=== PATIENT | male | born 1930 | race Caucasian/White ===

== ENCOUNTER 2018-02-08 20:40 | Inpatient (IN) | payer MEDICARE, OTHER ==
[2018-02-08] MEDS ORDERED: ALBUTEROL NEBULIZED 2.5 MG/3 ML INHALATION STA (21:21)
[2018-02-08] MEDS ORDERED: AZITHROMYCIN 500 MG in SODIUM CHLORIDE 0.9% 250 ML IVPB STA (21:21)
[2018-02-08] MEDS ORDERED: IPRATROPIUM 0.5 MG/2.5 ML NEBU INHALATION STA (21:21)
[2018-02-08] MEDS ORDERED: methylPREDNISolone SOD SUCCI 125 MG/2 ML VIAL IV STA (21:21)
[2018-02-08 21:57] LABS: INR 2.3 (<1.2); Partial Thromboplastin Time 30.8 sec (22.0-30.0); Prothrombin Time 22.4 sec (9.0-12.0)
[2018-02-08 21:59] LABS: Albumin 4.1 g/dL (3.5-5.0); Calcium 9.4 mg/dL (8.4-10.2); Potassium 5.3 mmol/L (3.5-5.1); Total Bilirubin 1.5 mg/dL (0.2-1.3); Total Protein 7.5 g/dL (6.3-8.2)
[2018-02-08 22:06] LABS: Basophils % (A) 0 %; Eosinophils % (A) 0 %; HCT 42.9 % (39.0-53.0); HGB 13.5 gm/dL (13.0-17.5); Lymphocytes # (A) 0.9 k/uL (1.0-4.8); Lymphocytes % (A) 6 %; MCH 28.4 pg (25.0-35.0); MCHC 31.6 g/dL (31.0-37.0); Mean Platelet Volume 7.8; Monocytes # (A) 0.8 k/uL (0-1.0); Monocytes % (A) 5 %; Neutrophils # (A) 13.2 k/uL (1.3-7.7); Neutrophils % (A) 87 %; Platelet Count 179 k/uL (150-450); RBC 4.77 m/uL (4.30-5.90); WBC 15.1 k/uL (3.8-10.6)
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
[2018-02-08 22:10] LABS: Creatine Kinase MB 5.5 ng/mL (0.0-2.4)
[2018-02-08 22:15] LABS: Troponin I 0.041 ng/mL (0.000-0.034)
--- NOTE | 2018-02-08 22:27 | XR ---
EXAMINATION TYPE: XR chest 2V DATE OF EXAM: 02/08/2018 COMPARISON: 06/09/2015 HISTORY: Hypertension and esophageal cancer TECHNIQUE: Frontal and lateral views of the chest are obtained. FINDINGS: There is linear density at the right lung base. There is elevated right diaphragm. There i s no heart failure. There are sternal wires. There are chest leads. I see no definite pleural effusio n. IMPRESSION: There is some right basilar atelectasis the same or slightly increased compared to last exam. No heart failure.
[2018-02-08] MEDS ORDERED: IPRATROPIUM-ALBUTEROL 3 ML NEB INHALATION PRN (22:44)
[2018-02-09] MEDS: methylPREDNISolone SOD SUCCI 125 MG/2 ML VIAL IV SCH ×5 (00:10→23:56)
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
[2018-02-09] MEDS ORDERED: BENZONATATE 100 MG CAP PO PRN (01:27)
[2018-02-09] MEDS ORDERED: NALOXONE 0.4 MG/ML 1 ML VIAL IV PRN (04:00)
[2018-02-09] MEDS ORDERED: DOCUSATE 100 MG CAP PO PRN (06:00)
[2018-02-09] MEDS: LEVOTHYROXINE 88 MCG TAB PO SCH (06:55)
[2018-02-09] MEDS: IPRATROPIUM-ALBUTEROL 3 ML NEB INHALATION SCH ×4 (07:45→20:18)
--- NOTE | 2018-02-09 08:53 | XR ---
EXAMINATION TYPE: XR chest 2V DATE OF EXAM: 02/09/2018 COMPARISON: Prior chest x-ray 02/08/2018 HISTORY: Sepsis and cough TECHNIQUE: Frontal and lateral views of the chest are obtained. FINDINGS: Patient is post median sternotomy. Heart size is stable, enlarged. Elevation of right sriram diaphragm persists. There is no evident pneumothorax. Right shoulder somewhat high riding, correlate for possible rotator cuff tear. There are overlying cardiac leads. Bandlike areas of increased attenu ation present in the right lower lung. IMPRESSION: Probable basilar atelectasis, correlate to exclude pneumonia. Persistent cardiomegaly. A dditional findings above.
[2018-02-09] MEDS ORDERED: LOSARTAN 50 MG TAB PO SCH (09:00)
[2018-02-09] MEDS ORDERED: ASPIRIN 81 MG PO SCH (09:00)
[2018-02-09] MEDS ORDERED: FUROSEMIDE 20 MG TAB PO SCH (09:00)
[2018-02-09] MEDS: METOPROLOL TARTRATE 12.5 MG TAB PO SCH ×2 (09:24→09:29)
[2018-02-09] MEDS: INSULIN ASPART 100 UNIT/ML 1 ML 10 ML VIAL SQ SCH ×4 (09:27→20:18)
[2018-02-09] MEDS: ISOSORBIDE MONONITRATE ER 30 MG TAB.ER.24H PO SCH (09:28)
[2018-02-09] MEDS: PANTOPRAZOLE 40 MG TABLET PO SCH (09:30)
[2018-02-09] MEDS: AZITHROMYCIN 500 MG TAB PO SCH (09:30)
[2018-02-09] MEDS: TAMSULOSIN 0.4 MG CAP.ER.24H PO SCH (09:30)
[2018-02-09] MEDS ORDERED: SODIUM CHLORIDE 0.9% 1,000 ML IV ONE (09:33)
--- NOTE | 2018-02-09 09:49 | P.PN ---
Subjective Progress Note Date: 02/09/18 Patient seen and examined at bedside, has not been ambulatory much since being in the ER on hold. Reports his breathing is slightly improved, complaining of bouts of coughing, denies any chest pain. Shortness of breath ongoing. No acute events overnight. Patient denies any history of asthma or COPD Objective - Vital Signs Vital signs: Vital Signs Temp 98.0 F 02/09/18 06:46 Pulse 53 L 02/09/18 07:53 Resp 18 02/09/18 06:46 BP 102/55 02/09/18 06:46 Pulse Ox 100 02/09/18 06:46 Intake & Output 02/08/18 02/09/18 02/09/18 18:59 06:59 18:59 Output Total 200 Balance -200 Weight 90.265 kg Output: Urine 200 - Exam Constitutional: No acute distress, conversant, pleasant Eyes: Anicteric sclerae, moist conjunctiva, no lid-lag, PERRLA ENMT: NC/AT,Oropharynx clear, no erythema, exudates Neck:Supple, FROM, no masses, or JVD, No carotid bruits; No thyromegaly Lungs: Diminished in the bases, diffuse rhonchi with some wheezes, Normal respiratory effort, no accessory muscle use 2 L nasal cannula Cardiovascular: Heart regular in rate and rhythm, No murmurs, gallops, or rubs no peripheral edema Abdominal: Soft Nontender, nom distended, no guarding, no rebound or rigidity, Normoactive bowel sounds No hepatomegaly, No splenomegaly, No palpable mass No abdominal wall hernia noted Skin: Normal temperature, tone, texture, turgor, No induration No subcutaneous nodules, No rash, lesions, No ulcers Extremities:No digital cyanosis No clubbing, Pedal pulses intact and symmetrical Radial pulses intact and symmetrical Normal gait and station, No calf tenderness Psychiatric: Alert and oriented to person, place and time, Appropriate affect Intact judgement Neuro: Muscles Strength 5/5 in all 4 extremities, Sensation to light touch grossly present throughout, Cranial nerves II-XII grossly intact. No focal sensory deficits - Labs CBC & Chem 7: 02/08/18 21:16 02/08/18 21:16 Labs: Abnormal Lab Results - Last 24 Hours (Table) 02/08/18 02/08/18 02/08/18 Range/Units 21:16 21:16 21:16 WBC 15.1 H (3.8-10.6) k/uL Neutrophils # 13.2 H (1.3-7.7) k/uL Lymphocytes # 0.9 L (1.0-4.8) k/uL PT (9.0-12.0) sec INR (<1.2) APTT (22.0-30.0) sec Sodium 135 L (137-145) mmol/L Potassium 5.3 H (3.5-5.1) mmol/L BUN 54 H (9-20) mg/dL Glucose 275 H (74-99) mg/dL Total Bilirubin 1.5 H (0.2-1.3) mg/dL Total Creatine Kinase 508 H (55-170) U/L CK-MB (CK-2) 5.5 H (0.0-2.4) ng/mL Troponin I 0.041 H* (0.000-0.034) ng/mL 02/08/18 02/09/18 Range/Units 21:16 02:33 WBC (3.8-10.6) k/uL Neutrophils # (1.3-7.7) k/uL Lymphocytes # (1.0-4.8) k/uL PT 22.4 H (9.0-12.0) sec INR 2.3 H (<1.2) APTT 30.8 H (22.0-30.0) sec Sodium (137-145) mmol/L Potassium (3.5-5.1) mmol/L BUN (9-20) mg/dL Glucose (74-99) mg/dL Total Bilirubin (0.2-1.3) mg/dL Total Creatine Kinase (55-170) U/L CK-MB (CK-2) (0.0-2.4) ng/mL Troponin I 0.041 H* (0.000-0.034) ng/mL Assessment and Plan Assessment: Chronic medical issues Hypothyroidism GERD History of CAD status post stents History of aortic valve replacement patient reports thick valve however he is on Coumadin Surrogate decision-maker: Patient daughter CODE STATUS: Full code (1) Sepsis Narrative/Plan: * Secondary to community-acquired pneumonia * Patient afebrile, previous leukocytosis 15 a.m. labs today pending * Continue empiric antibiotic regimen with Rocephin and azithromycin, blood cultures pending, will order urinalysis * Patient with borderline hypotension, we'll hold his hypertensive regimen and give him a bolus of 1 L of normal saline and continue maintenance fluids NS at 75 cc/hr Current Visit: Yes Status: Acute Code(s): A41.9 - SEPSIS, UNSPECIFIED ORGANISM SNOMED Code(s): 08788411 (2) Community acquired pneumonia Narrative/Plan: * Treatment as above with Rocephin and azithromycin * , repeat chest x-ray this a.m. showing probable basilar atelectasis correlate to exclude pneumonia * Continue scheduled and when necessary bronchodilator DuoNeb breathing treatments, continue steroids * Plantar consult pulmonology for further recommendations Current Visit: Yes Status: Acute Code(s): J18.9 - PNEUMONIA, UNSPECIFIED ORGANISM SNOMED Code(s): 647338709 (3) Type 2 diabetes mellitus with hyperglycemia Narrative/Plan: * A1c pending, hyperglycemia Precipitated by infection and ongoing steroid use * Continue home insulin regimen with Levemir 25 units daily at bedtime * Continue with correctional scale insulin coverage Current Visit: Yes Status: Acute Code(s): E11.65 - TYPE 2 DIABETES MELLITUS WITH HYPERGLYCEMIA SNOMED Code(s): 746727726065416 (4) Elevated troponin Narrative/Plan: * Likely non-STEMI type II event due to demand ischemia * h/o CAD continue ASA and statin therapy * Cardiology consult pending, will order 2-D echocardiogram * Patient already anticoagulated and is on warfarin Current Visit: Yes Status: Acute Code(s): R79.89 - OTHER SPECIFIED ABNORMAL FINDINGS OF BLOOD CHEMISTRY SNOMED Code(s): 941170473 (5) Third degree heart block Narrative/Plan: * Third-degree AV block with junctional rhythm, not new as seen on previous EKGs * Cardiology consult * tankerman Current Visit: Yes Status: Acute Code(s): I44.2 - ATRIOVENTRICULAR BLOCK, COMPLETE SNOMED Code(s): 41866567 Plan: Anticipated discharge : 1-2 days
[2018-02-09 12:24] LABS: Glucose,Whole Blood 464 mg/dL (75-99)
[2018-02-09 12:24] LABS: Glucose,Whole Blood 464 mg/dL (75-99)
[2018-02-09] MEDS ORDERED: INSULIN ASPART 100 UNIT/ML 1 ML 10 ML VIAL SQ ONE ×2 (12:24→16:45)
[2018-02-09] MEDS: SODIUM CHLORIDE 0.9% 1,000 ML IV SCH ×2 (12:44→23:26)
--- NOTE | 2018-02-09 13:43 | ECHOF ---
Referral Reason:Elevated troponins MEASUREMENTS -------- HEIGHT: 170.2 cm WEIGHT: 90.3 kg BP: 102/55 RVIDd: 3.5 cm (< 3.3) IVSd: 1.4 cm (0.6 - 1.1) LVIDd: 3.5 cm (3.9 - 5.3) LVPWd: 1.4 cm (0.6 - 1.1) IVSs: 1.9 cm LVIDs: 2.5 cm LVPWs: 1.8 cm LA Diam: 5.0 cm (2.7 - 3.8) LAESV Index (A-L): 37.08 ml/m Ao Diam: 2.6 cm (2.0 - 3.7) AV Cusp: 2.0 cm (1.5 - 2.6) EPSS: 1.0 cm AV maxP.03 mmHg AV meanP.32 mmHg RAP: 5.00 mmHg RVSP: 41.35 mmHg MV EF SLOPE: 54.58 mm/s (70 - 150) MV EXCURSION: 1.12 cm (> 18.000) FINDINGS -------- Atrial fibrillation. This was a technically good study. The left ventricular size is normal. There is moderate concentric left ventricular hypertrophy. O verall left ventricular systolic function is normal with, an EF between 55 - 60 %. The right ventricle is mildly enlarged. LA is moderately dilated 34-39 ml/m2 The right atrial size is normal. Peak/mean gradient across the Aortic Valve is 42.03mmHg / 22.32mmHg. 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 Moderate mitral annular calcification present. Wbqo-nc-bhvozili mitral regurgitation is present. The peak and mean MV gradients are 18.82mmHg 5.28mmHg as measured by doppler. Mild tricuspid regurgitation present. There is mild pulmonary hypertension. The right ventricular systolic pressure, as measured by Doppler, is 41.35mmHg. Moderate pulmonic regurgitation. The aortic root size is normal. IVC Not well visulized. There is a trivial pericardial effusion present. CONCLUSIONS -------- 1. Atrial fibrillation. 2. This was a technically good study. 3. The left ventricular size is normal. 4. There is moderate concentric left ventricular hypertrophy. 5. Overall left ventricular systolic function is normal with, an EF between 55 - 60 %. 6. The right ventricle is mildly enlarged. 7. LA is moderately dilated 34-39 ml/m2 8. Peak/mean gradient across the Aortic Valve is 42.03mmHg / 22.32mmHg. 9. 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 10. Moderate mitral annular calcification present. 11. Gqni-eo-otbpgafp mitral regurgitation is present. 12. The peak and mean MV gradients are 18.82mmHg 5.28mmHg as measured by doppler. 13. Mild tricuspid regurgitation present. 14. There is mild pulmonary hypertension. 15. Moderate pulmonic regurgitation. 16. The aortic root size is normal. 17. IVC Not well visulized. 18. There is a trivial pericardial effusion present. ROLL SHEETING CUTTER: SIMONA Marie
[2018-02-09 14:42] LABS: Hemoglobin A1C 9.1 % (4.0-6.0)
[2018-02-09 15:05] LABS: Appearance,Urine Clear (Clear); Bacteria,Urine Rare /hpf; Bilirubin,Urine Negative (Negative); Blood,Urine Negative (Negative); Color,Urine Yellow; Glucose,Urine (UA) 4+ (Negative); Ketones,Urine Negative (Negative); Leukocyte Esterase,Urine Moderate (Negative); Nitrite,Urine Negative (Negative); Protein,Urine Negative (Negative); Specific Gravity,Urine 1.021 (1.001-1.035); Urobilinogen,Urine <2.0 mg/dL (<2.0)
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
[2018-02-09 16:00] LABS: Basophils % (A) 0 %; Eosinophils # (A) 0.1 k/uL (0-0.7); Eosinophils % (A) 1 %; HGB 12.4 gm/dL (13.0-17.5); Hypochromasia Moderate; Lymphocytes # (A) 0.4 k/uL (1.0-4.8); Lymphocytes % (A) 3 %; MCH 28.4 pg (25.0-35.0); MCHC 30.2 g/dL (31.0-37.0); MCV 94.1 fL (80.0-100.0); Mean Platelet Volume 8.4; Monocytes # (A) 0.4 k/uL (0-1.0); Monocytes % (A) 4 %; Neutrophils # (A) 10.1 k/uL (1.3-7.7); Neutrophils % (A) 92 %; Platelet Count 148 k/uL (150-450); RBC 4.36 m/uL (4.30-5.90); WBC 10.9 k/uL (3.8-10.6)
[2018-02-09 17:12] LABS: Glucose,Whole Blood 457 mg/dL (75-99)
[2018-02-09] MEDS ORDERED: WARFARIN 2.5 MG TAB PO SCH (18:00)
[2018-02-09] MEDS: ATORVASTATIN 20 MG TAB PO SCH (19:59)
[2018-02-09] MEDS: FINASTERIDE 5 MG TAB PO SCH (19:59)
[2018-02-09] MEDS: LINAGLIPTIN 5 MG TABLET PO SCH (19:59)
[2018-02-09 20:17] LABS: Glucose,Whole Blood 422 mg/dL (75-99)
[2018-02-09] MEDS: INSULIN DETEMIR 100 UNIT/ML 10 ML VIAL SQ SCH (20:18)
[2018-02-09 20:46] LABS: Glucose,Whole Blood 396 mg/dL (75-99)
--- NOTE | 2018-02-09 21:05 | CONS ---
CONSULTATION Mr. Groves is an 88 year old gentleman with a known history of CAD, aortic valve replacement with a tissue valve, paroxysmal atrial fibrillation. He has history of type 2 diabetes mellitus, hypertension and hyperlipidemia as well. He came into the hospital with complaints of cough and dyspnea and it was a nonproductive cough. He also felt somewhat feverish. He also has nondescript chest discomfort that lasted less than a minute, sharp in nature, very atypical in quality. He has history of aortic valve bioprosthesis. With these symptoms, he came into the hospital and had a chest x- ray performed which suggested pneumonia. He has been hospitalized but troponin levels have shown some increase and therefore I was asked to see the patient. He denies any chest discomfort at the time of my evaluation, is resting comfortably, has no chest pain, shortness of breath or palpitation. He actually tells me that he feels better. He has multiple comorbid conditions. He does have pneumonia and this is being addressed with antibiotics. PAST MEDICAL HISTORY: This is remarkable for: 1. Type 2 diabetes. 2. Hypertension. 3. Hyperlipidemia. 4. History of aortic valve bioprosthesis as well as a bypass surgery, details unclear. He also has a PCI performed in 2003. Again, details are unavailable. He has his cardiac care in the [place] area. MEDICATIONS: At home include aspirin 81 mg daily, Avodart, insulin, Lantus, Imdur 30 mg daily, Synthroid 88 mcg daily, losartan 100 mg daily, rosuvastatin 10 mg daily, omeprazole, Lasix 20 mg b.i.d., potassium 10 mEq daily, Flomax, Coumadin 2.5 mg daily and also takes Humalog with each meal. ALLERGIES: No known drug allergies. LABORATORY DATA: Suggested two troponin levels and both of these were 0.041 and they do not suggest any myocardial injury. He is resting comfortably at the time of my evaluation. The proBNP was also within normal limits. Chest x-ray, however, initially indicated evidence of what seems to be a right basilar atelectasis and possibility of pneumonia is being entertained. I reviewed the chest x-ray and it appears that he does have right lower lobe pneumonia and patient is already on some antibiotics. On reviewing the chart and talking to the patient, it is unclear whether he has a documented atrial fibrillation or not, but he is at this time in what seems to be a sinus rhythm with a second-degree AV block with prolongation of IA interval and a QRS that is not particularly enlarged. This is a Wenckebach type phenomenon noted with a prolongation of IA interval from beat to beat. I also reviewed previous EKGs and noted that he had a first-degree AV block as well. On the rhythm strips, there are some intermittent second-degree AV block noted. At the time of my evaluation, he is asymptomatic. Heart rate is in the 50s. MEDICATIONS: His home medications include: Metoprolol tartrate 12.5 mg b.i.d. PHYSICAL EXAMINATION: Blood pressure is 140/70, pulse rate is about 60 per minute. HEENT: Unremarkable. Fundus was not examined by me. NECK: Supple. There is JVD of 1 cm. No carotid bruit. Heart exam reveals S1, S2 with a short systolic murmur at the base. Second heart sound is preserved. Lungs reveal diminished air entry with rales over the right base. Abdomen is soft, nontender. Lower extremities reveal diminished pulses. Central nervous system is grossly within normal limits. EKG revealed sinus mechanism with some Wenckebach phenomenon. No acute changes. Nonspecific ST-T changes are noted. Troponin profile does not suggest myocardial injury. IMPRESSION: 1. Right lower lobe pneumonia. 2. 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 3. History of aortic valve replacement and bypass surgery, details unclear. No overt angina. Troponin profile does not suggest myocardial injury. 4. History of type 2 diabetes mellitus. 5. Hyperlipidemia. RECOMMENDATIONS: I would recommend that we defer any beta blockers and particularly I will stop the Lopressor that he was taking at home. I will discontinue the aspirin and leave him on Coumadin. His echocardiogram does not reveal any significant new concerns. Aortic valve bioprosthesis is stable with mild stenosis. Ejection fraction is fairly well preserved. There is mild to moderate mitral regurgitation and mildly elevated PA pressures. I will recommend that we continue telemetry to see if he has any worsening of his conduction system disease, but so far no intervention is necessary. I will check thyroid function tests. I discussed my thoughts in detail with the patient. Thank you very much for the consult. MMODL / IJN: [id number] /
[2018-02-10] MEDS: methylPREDNISolone SOD SUCCI 125 MG/2 ML VIAL IV SCH ×2 (05:19→12:05)
[2018-02-10] MEDS: LEVOTHYROXINE 88 MCG TAB PO SCH (05:26)
[2018-02-10 06:07] LABS: Glucose,Whole Blood 180 mg/dL (75-99)
[2018-02-10] MEDS: INSULIN ASPART 100 UNIT/ML 1 ML 10 ML VIAL SQ SCH ×4 (06:51→20:43)
[2018-02-10 06:54] LABS: Basophils % (A) 0 %; Eosinophils % (A) 0 %; HCT 39.2 % (39.0-53.0); HGB 12.1 gm/dL (13.0-17.5); Lymphocytes # (A) 0.4 k/uL (1.0-4.8); Lymphocytes % (A) 3 %; MCH 27.9 pg (25.0-35.0); MCHC 30.8 g/dL (31.0-37.0); MCV 90.7 fL (80.0-100.0); Mean Platelet Volume 7.8; Monocytes # (A) 0.5 k/uL (0-1.0); Monocytes % (A) 4 %; Neutrophils # (A) 12.6 k/uL (1.3-7.7); Neutrophils % (A) 92 %; Platelet Count 174 k/uL (150-450); RBC 4.32 m/uL (4.30-5.90); WBC 13.7 k/uL (3.8-10.6)
[2018-02-10 07:10] LABS: Albumin 3.2 g/dL (3.5-5.0); Calcium 8.7 mg/dL (8.4-10.2); Magnesium 2.2 mg/dL (1.6-2.3); Potassium 4.8 mmol/L (3.5-5.1); Total Bilirubin 0.4 mg/dL (0.2-1.3); Total Protein 6.3 g/dL (6.3-8.2)
[2018-02-10] MEDS: IPRATROPIUM-ALBUTEROL 3 ML NEB INHALATION SCH ×4 (08:10→20:17)
[2018-02-10] MEDS: PANTOPRAZOLE 40 MG TABLET PO SCH (09:29)
[2018-02-10] MEDS: ISOSORBIDE MONONITRATE ER 30 MG TAB.ER.24H PO SCH (09:29)
[2018-02-10] MEDS: AZITHROMYCIN 500 MG TAB PO SCH (09:29)
[2018-02-10] MEDS: TAMSULOSIN 0.4 MG CAP.ER.24H PO SCH (09:29)
--- NOTE | 2018-02-10 10:56 | P.PN ---
Subjective Progress Note Date: 02/10/18 Patient has been up and ambulatory walking the halls, currently on 3 L nasal cannula we'll plan to wean his oxygen. He followed by cardiology and pulmonary. No acute events overnight. Patient afebrile Objective - Vital Signs Vital signs: Vital Signs Temp 97.7 F 02/10/18 08:00 Pulse 64 02/10/18 08:20 Resp 17 02/10/18 08:00 BP 115/70 02/10/18 08:00 Pulse Ox 95 02/10/18 08:00 Intake & Output 02/09/18 02/10/18 02/10/18 18:59 06:59 18:59 Intake Total 480 600 720 Output Total 200 600 Balance 280 600 120 Weight 90.2 kg Intake: Intake, IV Titration 600 Amount Sodium Chloride 0.9% 1, 600 000 ml @ 75 mls/hr IV . [id number] [facility] Rx#:[id number] Oral 480 720 Output: Urine 200 600 Other: # Voids 2 - Exam Constitutional: No acute distress, conversant, pleasant Eyes: Anicteric sclerae, moist conjunctiva, no lid-lag, PERRLA ENMT: NC/AT,Oropharynx clear, no erythema, exudates Neck:Supple, FROM, no masses, or JVD, No carotid bruits; No thyromegaly Lungs: Diminished in the bases, improved aeration, Normal respiratory effort, no accessory muscle use 2 L nasal cannula Cardiovascular: Heart regular in rate and rhythm, No murmurs, gallops, or rubs no peripheral edema Abdominal: Soft Nontender, nom distended, no guarding, no rebound or rigidity, Normoactive bowel sounds No hepatomegaly, No splenomegaly, No palpable mass No abdominal wall hernia noted Skin: Normal temperature, tone, texture, turgor, No induration No subcutaneous nodules, No rash, lesions, No ulcers Extremities:No digital cyanosis No clubbing, Pedal pulses intact and symmetrical Radial pulses intact and symmetrical Normal gait and station, No calf tenderness Psychiatric: Alert and oriented to person, place and time, Appropriate affect Intact judgement Neuro: Muscles Strength 5/5 in all 4 extremities, Sensation to light touch grossly present throughout, Cranial nerves II-XII grossly intact. No focal sensory deficits - Labs CBC & Chem 7: 02/10/18 06:11 02/10/18 06:11 Labs: Abnormal Lab Results - Last 24 Hours (Table) 02/08/18 02/09/18 02/09/18 Range/Units 21:16 12:19 12:21 WBC (3.8-10.6) k/uL Hgb (13.0-17.5) gm/dL MCHC (31.0-37.0) g/dL Plt Count (150-450) k/uL Neutrophils # (1.3-7.7) k/uL Lymphocytes # (1.0-4.8) k/uL BUN (9-20) mg/dL Glucose (74-99) mg/dL POC Glucose (mg/dL) 464 H 464 H (75-99) mg/dL Hemoglobin A1c 9.1 H (4.0-6.0) % Albumin (3.5-5.0) g/dL Urine Glucose (UA) (Negative) Ur Leukocyte Esterase (Negative) Urine WBC (0-5) /hpf Urine Bacteria (None) /hpf 02/09/18 02/09/18 02/09/18 Range/Units 14:24 15:20 16:41 WBC 10.9 H (3.8-10.6) k/uL Hgb 12.4 L (13.0-17.5) gm/dL MCHC 30.2 L (31.0-37.0) g/dL Plt Count 148 L (150-450) k/uL Neutrophils # 10.1 H (1.3-7.7) k/uL Lymphocytes # 0.4 L (1.0-4.8) k/uL BUN (9-20) mg/dL Glucose (74-99) mg/dL POC Glucose (mg/dL) 457 H (75-99) mg/dL Hemoglobin A1c (4.0-6.0) % Albumin (3.5-5.0) g/dL Urine Glucose (UA) 4+ H (Negative) Ur Leukocyte Esterase Moderate H (Negative) Urine WBC 16 H (0-5) /hpf Urine Bacteria Rare H (None) /hpf 02/09/18 02/09/18 02/10/18 Range/Units 20:15 20:44 06:06 WBC (3.8-10.6) k/uL Hgb (13.0-17.5) gm/dL MCHC (31.0-37.0) g/dL Plt Count (150-450) k/uL Neutrophils # (1.3-7.7) k/uL Lymphocytes # (1.0-4.8) k/uL BUN (9-20) mg/dL Glucose (74-99) mg/dL POC Glucose (mg/dL) 422 H 396 H 180 H (75-99) mg/dL Hemoglobin A1c (4.0-6.0) % Albumin (3.5-5.0) g/dL Urine Glucose (UA) (Negative) Ur Leukocyte Esterase (Negative) Urine WBC (0-5) /hpf Urine Bacteria (None) /hpf 02/10/18 02/10/18 Range/Units 06:11 06:11 WBC 13.7 H (3.8-10.6) k/uL Hgb 12.1 L (13.0-17.5) gm/dL MCHC 30.8 L (31.0-37.0) g/dL Plt Count (150-450) k/uL Neutrophils # 12.6 H (1.3-7.7) k/uL Lymphocytes # 0.4 L (1.0-4.8) k/uL BUN 57 H (9-20) mg/dL Glucose 175 H (74-99) mg/dL POC Glucose (mg/dL) (75-99) mg/dL Hemoglobin A1c (4.0-6.0) % Albumin 3.2 L (3.5-5.0) g/dL Urine Glucose (UA) (Negative) Ur Leukocyte Esterase (Negative) Urine WBC (0-5) /hpf Urine Bacteria (None) /hpf Microbiology - Last 24 Hours (Table) 02/09/18 14:24 Urine Culture - Preliminary Urine,Voided 02/08/18 21:16 Blood Culture - Preliminary Blood No Growth after 24 hours Assessment and Plan (1) Sepsis Narrative/Plan: * Secondary to community-acquired pneumonia * Patient afebrile, previous leukocytosis 15 a.m. labs today pending * Continue empiric antibiotic regimen with Rocephin and azithromycin, blood cultures pending, will order urinalysis * Patient with borderline hypotension, we'll hold his hypertensive regimen and give him a bolus of 1 L of normal saline and continue maintenance fluids NS at 75 cc/hr Current Visit: Yes Status: Acute Code(s): A41.9 - SEPSIS, UNSPECIFIED ORGANISM SNOMED Code(s): 29922148 (2) Community acquired pneumonia Narrative/Plan: * Treatment as above with Rocephin and azithromycin * , repeat chest x-ray this a.m. showing probable basilar atelectasis correlate to exclude pneumonia * Continue scheduled and when necessary bronchodilator DuoNeb breathing treatments, continue steroids * Appreciate cardiology recommendations Current Visit: Yes Status: Acute Code(s): J18.9 - PNEUMONIA, UNSPECIFIED ORGANISM SNOMED Code(s): 320386103 (3) Type 2 diabetes mellitus with hyperglycemia Narrative/Plan: * A1c pending, hyperglycemia Precipitated by infection and ongoing steroid use * Continue home insulin regimen with Levemir 25 units daily at bedtime * Continue with correctional scale insulin coverage Current Visit: Yes Status: Acute Code(s): E11.65 - TYPE 2 DIABETES MELLITUS WITH HYPERGLYCEMIA SNOMED Code(s): 389619033059726 (4) Elevated troponin Narrative/Plan: * Likely non-STEMI type II event due to demand ischemia * h/o CAD continue statin therapy * Appreciated cardiology recommendations * Patient already anticoagulated and is on warfarin Current Visit: Yes Status: Acute Code(s): R79.89 - OTHER SPECIFIED ABNORMAL FINDINGS OF BLOOD CHEMISTRY SNOMED Code(s): 041157812 (5) Third degree heart block Narrative/Plan: * Third-degree AV block with junctional rhythm, not new as seen on previous EKGs * Appreciate cardiology recommendations beta blockers discontinued, echocardiogram showing a fairly well preserved EF * continue monitoring telemetry Current Visit: Yes Status: Acute Code(s): I44.2 - ATRIOVENTRICULAR BLOCK, COMPLETE SNOMED Code(s): 90262150
[2018-02-10 11:55] LABS: Glucose,Whole Blood 300 mg/dL (75-99)
[2018-02-10 13:04] VITALS: BMI 31.1
[2018-02-10] MEDS: SODIUM CHLORIDE 0.9% 1,000 ML IV SCH ×2 (14:01→23:35)
--- NOTE | 2018-02-10 15:00 | P.PN ---
Subjective Progress Note Date: 02/10/18 Principal diagnosis: Acute community acquired right lower lobe pneumonia This is an 88-year-old white male with history of multiple medical problems including type 2 diabetes, hypertension, hyperlipidemia, and remote history of esophageal cancer treated only with radiation and chemotherapy. This was about 12 years ago. Patient had a 2-pack-year history of smoking, presented to the ER with 1 week history of cough, mostly dry cough, at times productive with greenish phlegm. Patient was also complaining of some shortness of breath, however his shortness of breath is rather chronic. No known history of COPD, no previous history of pneumonia, patient had a recent full workup by his primary care physician at [facility], and according to his primary care physician all his workup was negative including multiple blood tests. Echocardiogram on admission showed no evidence of LV dysfunction, and no significant valvular heart disease. It did show moderate concentric left ventricular hypertrophy, ejection fraction was 55-60%. Chest x-ray on admission showed right lower lobe infiltrates. CBC showed evidence of leukocytosis with WBC count of 15.1. Troponin was borderline elevated at 0.041 , BNP level was just over 2000. Patient is known to have history of aortic valve replacement, chronically on anticoagulation therapy and his INR on admission was therapeutic. EKG was reviewed on admission, and it is suspicious for a second degree AV block. Cardiology consultation is pending. On 02/10/2018 patient seen in follow-up on selective care unit. In no acute distress, wearing oxygen intermittently right now room air pulse ox is 93%, no fever or chills, vital signs are stable, lung sounds are positive for some coarse rales over right lower lobe. Patient has been ambulating about the room , tolerating activity well, on empiric antibiotics in with Rocephin and Zithromax, is unable to produce a sputum sample for us, blood and urine cultures are pending. Clinically remains stable, improving Objective - Vital Signs Vital signs: Vital Signs Temp 97.7 F 02/10/18 08:00 Pulse 69 02/10/18 12:00 Resp 18 02/10/18 12:00 BP 131/54 02/10/18 12:00 Pulse Ox 93 L 02/10/18 12:00 Intake & Output 02/09/18 02/10/18 02/10/18 18:59 06:59 18:59 Intake Total 480 600 720 Output Total 200 600 Balance 280 600 120 Weight 90.2 kg 90.2 kg Intake: Intake, IV Titration 600 Amount Sodium Chloride 0.9% 1, 600 000 ml @ 75 mls/hr IV . [id number] [facility] Rx#:[id number] Oral 480 720 Output: Urine 200 600 Other: # Voids 2 - Exam Physical Exam: Revealed an 88-year-old white male in no distress. Very pleasant. On 2 L nasal cannula. Head: Atraumatic, normocephalic. HEENT:[Neck is supple.] [No neck masses.] [No thyromegaly.] [No JVD.] PERRLA, EOMI, no icterus. Chest: [Significant crackles and rhonchi noted at the right base, minimal crackles at the left base, symmetrical expansion, no wheezing..] Cardiac Exam: [Normal S1 and S2, no S3 gallop, 2/6 systolic murmur thought the precordium. Abdomen: [Obese, Soft, nontender, no megaly, no rebound, no guarding, normal bowel sounds.] Extremities: [No clubbing, no edema, no cyanosis. Chronic venous stasis changes noted in lower extremities.] Neurological Exam: [No focal neurologic deficit.] Psychiatric: Normal mood, affect and mental status examination. Skin: No rashes. - Labs CBC & Chem 7: 02/10/18 06:11 02/10/18 06:11 Labs: Abnormal Lab Results - Last 24 Hours (Table) 02/09/18 02/09/18 02/09/18 Range/Units 14:24 15:20 16:41 WBC 10.9 H (3.8-10.6) k/uL Hgb 12.4 L (13.0-17.5) gm/dL MCHC 30.2 L (31.0-37.0) g/dL Plt Count 148 L (150-450) k/uL Neutrophils # 10.1 H (1.3-7.7) k/uL Lymphocytes # 0.4 L (1.0-4.8) k/uL BUN (9-20) mg/dL Glucose (74-99) mg/dL POC Glucose (mg/dL) 457 H (75-99) mg/dL Albumin (3.5-5.0) g/dL Urine Glucose (UA) 4+ H (Negative) Ur Leukocyte Esterase Moderate H (Negative) Urine WBC 16 H (0-5) /hpf Urine Bacteria Rare H (None) /hpf 02/09/18 02/09/18 02/10/18 Range/Units 20:15 20:44 06:06 WBC (3.8-10.6) k/uL Hgb (13.0-17.5) gm/dL MCHC (31.0-37.0) g/dL Plt Count (150-450) k/uL Neutrophils # (1.3-7.7) k/uL Lymphocytes # (1.0-4.8) k/uL BUN (9-20) mg/dL Glucose (74-99) mg/dL POC Glucose (mg/dL) 422 H 396 H 180 H (75-99) mg/dL Albumin (3.5-5.0) g/dL Urine Glucose (UA) (Negative) Ur Leukocyte Esterase (Negative) Urine WBC (0-5) /hpf Urine Bacteria (None) /hpf 02/10/18 02/10/18 02/10/18 Range/Units 06:11 06:11 11:53 WBC 13.7 H (3.8-10.6) k/uL Hgb 12.1 L (13.0-17.5) gm/dL MCHC 30.8 L (31.0-37.0) g/dL Plt Count (150-450) k/uL Neutrophils # 12.6 H (1.3-7.7) k/uL Lymphocytes # 0.4 L (1.0-4.8) k/uL BUN 57 H (9-20) mg/dL Glucose 175 H (74-99) mg/dL POC Glucose (mg/dL) 300 H (75-99) mg/dL Albumin 3.2 L (3.5-5.0) g/dL Urine Glucose (UA) (Negative) Ur Leukocyte Esterase (Negative) Urine WBC (0-5) /hpf Urine Bacteria (None) /hpf Microbiology - Last 24 Hours (Table) 02/09/18 14:24 Urine Culture - Preliminary Urine,Voided 02/08/18 21:16 Blood Culture - Preliminary Blood No Growth after 24 hours Assessment and Plan Plan: Assessment: 1 acute community-acquired right lower lobe pneumonia 2 multiple comorbidities including remote history of esophageal cancer, esophageal stricture, valvular heart disease and previous aortic valve replacement, hypothyroidism, type 2 diabetes, hypercholesterolemia, and cardiac arrhythmia. Plan: Continue current medical treatment, will obtain repeat chest x-ray tomorrow, patient continues to improve patient can be considered for discharge home tomorrow. Continue nebulized bronchodilators, we'll transition to oral prednisone tomorrow. I performed a history & physical examination of the patient and discussed their management with my nurse practitioner, Khadijah Cuevas. I reviewed the nurse practitioner's note and agree with the documented findings and plan of care. Lung sounds are positive for right lower lobe crackles. The findings and the impression was discussed with the patient. I attest to the documentation by the nurse practitioner. Time with Patient: Less than 30
[2018-02-10 16:52] LABS: Glucose,Whole Blood 385 mg/dL (75-99)
[2018-02-10] MEDS ORDERED: INSULIN ASPART 100 UNIT/ML 1 ML 10 ML VIAL SQ ONE (17:30)
[2018-02-10] MEDS: methylPREDNISolone SOD SUCCI 40 MG/ML 1 ML VIAL IV SCH ×2 (17:36→23:35)
[2018-02-10] MEDS ORDERED: WARFARIN 2.5 MG TAB PO SCH (18:00)
--- NOTE | 2018-02-10 18:51 | PN ---
PROGRESS NOTE Dada Groves is a patient with some CAD with prior bypass surgery. He came in with pneumonia. He is on antibiotics. I reviewed his rhythm strips. He has sinus mechanism with first-degree heart block. No significant bradycardia. No symptoms. I will obtain EKG today. Vitals are stable. S1-S2 heard normally. Short systolic murmur noted. Lungs are clear. Abdomen and lower exam is unchanged. Plan is to continue current medications. Increase activity and avoid any rate lowering agents. Patient may be discharged whenever it is okay with pulmonology and the admitting physician. MMODL / IJN: [id number] /
[2018-02-10 20:40] LABS: Glucose,Whole Blood 309 mg/dL (75-99)
[2018-02-10] MEDS: LINAGLIPTIN 5 MG TABLET PO SCH (20:43)
[2018-02-10] MEDS: FINASTERIDE 5 MG TAB PO SCH (20:43)
[2018-02-10] MEDS: ATORVASTATIN 20 MG TAB PO SCH (20:43)
[2018-02-10] MEDS: INSULIN DETEMIR 100 UNIT/ML 10 ML VIAL SQ SCH (20:44)
[2018-02-11 05:41] LABS: Glucose,Whole Blood 295 mg/dL (75-99)
[2018-02-11] MEDS: LEVOTHYROXINE 88 MCG TAB PO SCH (05:53)
[2018-02-11] MEDS: INSULIN ASPART 100 UNIT/ML 1 ML 10 ML VIAL SQ SCH ×4 (05:53→20:15)
[2018-02-11 06:40] LABS: INR 4.8 (<1.2); Prothrombin Time 46.6 sec (9.0-12.0)
[2018-02-11] MEDS: TAMSULOSIN 0.4 MG CAP.ER.24H PO SCH (08:30)
[2018-02-11] MEDS: methylPREDNISolone SOD SUCCI 40 MG/ML 1 ML VIAL IV SCH (08:30)
[2018-02-11] MEDS: ISOSORBIDE MONONITRATE ER 30 MG TAB.ER.24H PO SCH (08:30)
[2018-02-11] MEDS: AZITHROMYCIN 500 MG TAB PO SCH (08:30)
[2018-02-11] MEDS: PANTOPRAZOLE 40 MG TABLET PO SCH (08:30)
[2018-02-11] MEDS: IPRATROPIUM-ALBUTEROL 3 ML NEB INHALATION SCH ×4 (08:41→19:13)
--- NOTE | 2018-02-11 08:54 | XR ---
EXAMINATION TYPE: XR chest 2V DATE OF EXAM: 02/11/2018 COMPARISON: 02/09/2018 TECHNIQUE: PA and lateral views submitted. HISTORY: Cough FINDINGS: Patient is post median sternotomy. Heart size is stable, enlarged. Elevation of right hemidiaphragm p ersists. There is no evident pneumothorax. Consolidation and pleural effusion involving the right laila g essentially stable. Underlying interstitial lung disease or COPD suspected. Heart is enlarged. Arth ropathy of the shoulders and degenerative change spine. Surgical clips in the abdomen. IMPRESSION: 1. Correlate for COPD with right basilar consolidation and small effusion. Pneumonia in the different ial diagnosis.
[2018-02-11 11:46] LABS: Glucose,Whole Blood 259 mg/dL (75-99)
--- NOTE | 2018-02-11 14:31 | P.PN ---
Subjective Progress Note Date: 02/11/18 Patient is doing fairly well today. He denies any shortness of breath or wheezing. No acute events reported by nursing staff overnight. Objective - Vital Signs Vital signs: Vital Signs Temp 97.6 F 02/11/18 12:00 Pulse 64 02/11/18 12:32 Resp 19 02/11/18 12:00 BP 165/87 02/11/18 12:00 Pulse Ox 96 02/11/18 12:00 Intake & Output 02/10/18 02/11/18 02/11/18 18:59 06:59 18:59 Intake Total 1000 200 480 Output Total 900 1000 500 Balance 100 -800 -20 Weight 90.2 kg 94 kg Intake: IV 200 Sodium Chloride 0.9% 1, 150 000 ml @ 75 mls/hr IV . [id number] [facility] Rx#:[id number] cefTRIAXone 1,000 mg In 50 Sodium Chloride 0.9% 50 ml @ 100 mls/hr IVPB Q24H [facility] Rx#:[id number] Oral 1000 480 Output: Urine 900 1000 500 Other: # Voids 2 - Exam General: The patient is awake and alert, in no distress Eye: there is normal conjunctiva bilaterally. Cardiovascular: Normal S1-S2, no S3-S4, no murmurs. Respiratory: Lungs clear to auscultation bilaterally Gastrointestinal: Abdomen is soft, nontender Musculoskeletal: There is no pedal edema. Neurological:. Speech is normal. Skin: Skin is warm and dry - Labs CBC & Chem 7: 02/10/18 06:11 02/10/18 06:11 Labs: Abnormal Lab Results - Last 24 Hours (Table) 02/10/18 02/10/18 02/11/18 Range/Units 16:50 20:38 05:39 PT (9.0-12.0) sec INR (<1.2) POC Glucose (mg/dL) 385 H 309 H 295 H (75-99) mg/dL 02/11/18 02/11/18 Range/Units 05:59 11:41 PT 46.6 H (9.0-12.0) sec INR 4.8 H (<1.2) POC Glucose (mg/dL) 259 H (75-99) mg/dL Microbiology - Last 24 Hours (Table) 02/09/18 14:24 Urine Culture - Final Urine,Voided 02/08/18 21:16 Blood Culture - Preliminary Blood No Growth after 48 hours Assessment and Plan Assessment: 1. Community-acquired pneumonia with sepsis on presentation. No septic shock. Improving with antibiotic ceftriaxone/azithromycin. Blood culture negative to date. 2. History of aortic valve replacement on anticoagulation with Coumadin. Also Coumadin today for INR of 4.8. Repeat lab work in the morning 3. Coronary artery disease with prior stent placement, with mild troponin elevation on presentation. Seen and evaluated by cardiology. Continue medical management. 4. First-degree heart block noted on 12-lead EKG: seen by cardiology. No intervention needed at this time. 5. Type 2 diabetes mellitus, not well controlled. A1c 9.1. Continue current regimen. Monitor blood glucose closely 6. Essential hypertension: Blood pressure within acceptable range
--- NOTE | 2018-02-11 15:40 | PN ---
PROGRESS NOTE Mr. Groves is a gentleman with type 2 diabetes, hypertension, hyperlipidemia with a history of aortic valve bioprosthesis and bypass surgery in the past. He was admitted with pneumonia. He is feeling better today. Denies chest pain. Improved functional capacity. His breathing is good. He has no symptoms of chest discomfort or shortness of breath. We will continue his current medications, increase activity, and hopefully he can be discharged whenever it is okay with the slat grader. His vital signs are stable. S1-S2 heard normally. Short systolic murmur is audible. Lungs are clear. Abdomen and lower extremity exam is unchanged. MMODL / IJN: [id number] /
--- NOTE | 2018-02-11 16:14 | P.PN ---
Subjective Progress Note Date: 02/11/18 Principal diagnosis: Acute community acquired right lower lobe pneumonia This is an 88-year-old white male with history of multiple medical problems including type 2 diabetes, hypertension, hyperlipidemia, and remote history of esophageal cancer treated only with radiation and chemotherapy. This was about 12 years ago. Patient had a 2-pack-year history of smoking, presented to the ER with 1 week history of cough, mostly dry cough, at times productive with greenish phlegm. Patient was also complaining of some shortness of breath, however his shortness of breath is rather chronic. No known history of COPD, no previous history of pneumonia, patient had a recent full workup by his primary care physician at [facility], and according to his primary care physician all his workup was negative including multiple blood tests. Echocardiogram on admission showed no evidence of LV dysfunction, and no significant valvular heart disease. It did show moderate concentric left ventricular hypertrophy, ejection fraction was 55-60%. Chest x-ray on admission showed right lower lobe infiltrates. CBC showed evidence of leukocytosis with WBC count of 15.1. Troponin was borderline elevated at 0.041 , BNP level was just over 2000. Patient is known to have history of aortic valve replacement, chronically on anticoagulation therapy and his INR on admission was therapeutic. EKG was reviewed on admission, and it is suspicious for a second degree AV block. Cardiology consultation is pending. On 02/10/2018 patient seen in follow-up on selective care unit. In no acute distress, wearing oxygen intermittently right now room air pulse ox is 93%, no fever or chills, vital signs are stable, lung sounds are positive for some coarse rales over right lower lobe. Patient has been ambulating about the room , tolerating activity well, on empiric antibiotics in with Rocephin and Zithromax, is unable to produce a sputum sample for us, blood and urine cultures are pending. Clinically remains stable, improving On 02/11/2018 patient seen in follow-up. He denies any worsening dyspnea, still has some coughing, without much sputum production. Lung sounds are positive for some coarse rales at the right lower posterior lobe, and a chest x- ray has been reviewed by Dr. Hook, and shows some atelectasis at the right lower lobe, chronically elevated right hemidiaphragm, and better aeration of the left lower lobe. Clinically patient remains stable, no fever or chills, cultures remain negative, today's labs have been reviewed, INR is 4.8, Coumadin will be held tonight, continue with current medical management, patient could be considered for discharge either today or tomorrow. Objective - Vital Signs Vital signs: Vital Signs Temp 98.1 F 02/11/18 15:39 Pulse 68 02/11/18 15:58 Resp 18 02/11/18 15:39 BP 146/70 02/11/18 15:39 Pulse Ox 94 L 02/11/18 15:39 Intake & Output 02/10/18 02/11/18 02/11/18 18:59 06:59 18:59 Intake Total 1000 200 480 Output Total 900 1000 500 Balance 100 -800 -20 Weight 90.2 kg 94 kg Intake: IV 200 Sodium Chloride 0.9% 1, 150 000 ml @ 75 mls/hr IV . [id number] [facility] Rx#:[id number] cefTRIAXone 1,000 mg In 50 Sodium Chloride 0.9% 50 ml @ 100 mls/hr IVPB Q24H [facility] Rx#:[id number] Oral 1000 480 Output: Urine 900 1000 500 Other: # Voids 2 - Exam Physical Exam: Revealed an 88-year-old white male in no distress. Very pleasant. On 2 L nasal cannula. Head: Atraumatic, normocephalic. HEENT:[Neck is supple.] [No neck masses.] [No thyromegaly.] [No JVD.] PERRLA, EOMI, no icterus. Chest: [Significant crackles and rhonchi noted at the right base, minimal crackles at the left base, symmetrical expansion, no wheezing..] Cardiac Exam: [Normal S1 and S2, no S3 gallop, 2/6 systolic murmur thought the precordium. Abdomen: [Obese, Soft, nontender, no megaly, no rebound, no guarding, normal bowel sounds.] Extremities: [No clubbing, no edema, no cyanosis. Chronic venous stasis changes noted in lower extremities.] Neurological Exam: [No focal neurologic deficit.] Psychiatric: Normal mood, affect and mental status examination. Skin: No rashes. - Labs CBC & Chem 7: 02/10/18 06:11 02/10/18 06:11 Labs: Abnormal Lab Results - Last 24 Hours (Table) 12/13/18 12/13/18 12/14/18 Range/Units 16:50 20:38 05:39 PT (9.0-12.0) sec INR (<1.2) POC Glucose (mg/dL) 385 H 309 H 295 H (75-99) mg/dL 02/11/18 02/11/18 Range/Units 05:59 11:41 PT 46.6 H (9.0-12.0) sec INR 4.8 H (<1.2) POC Glucose (mg/dL) 259 H (75-99) mg/dL Microbiology - Last 24 Hours (Table) 02/09/18 14:24 Urine Culture - Final Urine,Voided 02/08/18 21:16 Blood Culture - Preliminary Blood No Growth after 48 hours Assessment and Plan Plan: Assessment: 1 acute community-acquired right lower lobe pneumonia 2 multiple comorbidities including remote history of esophageal cancer, esophageal stricture, valvular heart disease and previous aortic valve replacement, hypothyroidism, type 2 diabetes, hypercholesterolemia, and cardiac arrhythmia. Plan: Clinically patient remains stable, no fever or chills, vital signs are stable, no worsening dyspnea, today's chest x-ray shows atelectasis in the right lower lobe, better aeration of the left lower lobe. Continue current antibiotic coverage, we will decrease the dose of oral prednisone to 30 mg. Continue with nebulized treatments. From pulmonary perspective patient could be considered for discharge home tonight or tomorrow, we'll need follow-up in the outpatient clinic in 1 week. I performed a history & physical examination of the patient and discussed their management with my nurse practitioner, Khadijah Cuevas. I reviewed the nurse practitioner's note and agree with the documented findings and plan of care. Lung sounds are positive for right lower lobe crackles. The findings and the impression was discussed with the patient. I attest to the documentation by the nurse practitioner. Time with Patient: Less than 30
[2018-02-11 16:41] LABS: Glucose,Whole Blood 345 mg/dL (75-99)
[2018-02-11 20:07] LABS: Glucose,Whole Blood 260 mg/dL (75-99)
[2018-02-11] MEDS: LINAGLIPTIN 5 MG TABLET PO SCH (20:15)
[2018-02-11] MEDS: ATORVASTATIN 20 MG TAB PO SCH (20:15)
[2018-02-11] MEDS: FINASTERIDE 5 MG TAB PO SCH (20:15)
[2018-02-11] MEDS: INSULIN DETEMIR 100 UNIT/ML 10 ML VIAL SQ SCH (21:01)
[2018-02-12 06:15] LABS: Glucose,Whole Blood 105 mg/dL (75-99)
[2018-02-12] MEDS: INSULIN ASPART 100 UNIT/ML 1 ML 10 ML VIAL SQ SCH ×4 (06:20→20:31)
[2018-02-12] MEDS: LEVOTHYROXINE 88 MCG TAB PO SCH (06:23)
[2018-02-12 06:36] LABS: Basophils % (A) 0 %; Eosinophils % (A) 0 %; HCT 40.6 % (39.0-53.0); HGB 12.7 gm/dL (13.0-17.5); Lymphocytes # (A) 1.1 k/uL (1.0-4.8); Lymphocytes % (A) 10 %; MCHC 31.2 g/dL (31.0-37.0); MCV 89.8 fL (80.0-100.0); Mean Platelet Volume 7.4; Monocytes # (A) 0.7 k/uL (0-1.0); Monocytes % (A) 7 %; Neutrophils # (A) 8.5 k/uL (1.3-7.7); Neutrophils % (A) 81 %; Platelet Count 205 k/uL (150-450); RBC 4.52 m/uL (4.30-5.90); RDW 13.8 % (11.5-15.5); WBC 10.5 k/uL (3.8-10.6)
[2018-02-12 06:44] LABS: INR 4.6 (<1.2); Prothrombin Time 44.7 sec (9.0-12.0)
[2018-02-12 06:47] LABS: Potassium 4.9 mmol/L (3.5-5.1)
[2018-02-12] MEDS: PANTOPRAZOLE 40 MG TABLET PO SCH (08:38)
[2018-02-12] MEDS: TAMSULOSIN 0.4 MG CAP.ER.24H PO SCH (08:38)
[2018-02-12] MEDS: predniSONE 20 MG TAB PO SCH (08:39)
[2018-02-12] MEDS: ISOSORBIDE MONONITRATE ER 30 MG TAB.ER.24H PO SCH (08:39)
[2018-02-12] MEDS: AZITHROMYCIN 500 MG TAB PO SCH (08:39)
[2018-02-12] MEDS: IPRATROPIUM-ALBUTEROL 3 ML NEB INHALATION SCH ×4 (08:41→21:30)
[2018-02-12] MEDS ORDERED: predniSONE 20 MG TAB PO SCH (09:00)
[2018-02-12 11:49] LABS: Glucose,Whole Blood 249 mg/dL (75-99)
--- NOTE | 2018-02-12 11:50 | P.PN ---
Subjective Progress Note Date: 02/12/18 Patient is doing fairly well today. He denies any shortness of breath or wheezing. No acute events reported by nursing staff overnight. His INR is still elevated around 4.4. Cough is productive of yellowish/ greenish sputum. Objective - Vital Signs Vital signs: Vital Signs Temp 97.5 F L 02/12/18 08:00 Pulse 72 02/12/18 08:52 Resp 20 02/12/18 08:00 BP 174/86 02/12/18 08:00 Pulse Ox 96 02/12/18 08:43 Intake & Output 02/11/18 02/12/18 02/12/18 18:59 06:59 18:59 Intake Total 480 180 Output Total 500 2 Balance -20 178 Weight 94.3 kg Intake: Oral 480 180 Output: Urine 500 2 Other: Voiding Method Toilet # Voids 2 3 2 - Exam General: The patient is awake and alert, in no distress Eye: there is normal conjunctiva bilaterally. Cardiovascular: Normal S1-S2, no S3-S4, no murmurs. Respiratory: Lungs clear to auscultation bilaterally Gastrointestinal: Abdomen is soft, nontender Musculoskeletal: There is no pedal edema. Neurological:. Speech is normal. Skin: Skin is warm and dry - Labs CBC & Chem 7: 02/12/18 05:36 02/12/18 05:36 Labs: Abnormal Lab Results - Last 24 Hours (Table) 02/11/18 02/11/18 02/12/18 Range/Units 16:38 20:05 05:36 Hgb 12.7 L (13.0-17.5) gm/dL Neutrophils # 8.5 H (1.3-7.7) k/uL PT (9.0-12.0) sec INR (<1.2) Carbon Dioxide (22-30) mmol/L BUN (9-20) mg/dL Glucose (74-99) mg/dL POC Glucose (mg/dL) 345 H 260 H (75-99) mg/dL 02/12/18 02/12/18 02/12/18 Range/Units 05:36 05:36 06:14 Hgb (13.0-17.5) gm/dL Neutrophils # (1.3-7.7) k/uL PT 44.7 H (9.0-12.0) sec INR 4.6 H (<1.2) Carbon Dioxide 32 H (22-30) mmol/L BUN 37 H (9-20) mg/dL Glucose 114 H (74-99) mg/dL POC Glucose (mg/dL) 105 H (75-99) mg/dL Microbiology - Last 24 Hours (Table) 02/08/18 21:16 Blood Culture - Preliminary Blood No Growth after 72 hours Assessment and Plan Assessment: 1. Community-acquired pneumonia with sepsis on presentation. No septic shock. Improving with antibiotic ceftriaxone/azithromycin. Blood culture negative to date. 2. History of aortic valve replacement on anticoagulation with Coumadin 3. Coronary artery disease with prior stent placement, with mild troponin elevation on presentation. Seen and evaluated by cardiology. Continue medical management. 4. First-degree heart block noted on 12-lead EKG: seen by cardiology. No intervention needed at this time. 5. Type 2 diabetes mellitus, not well controlled. A1c 9.1. Continue current regimen. Monitor blood glucose closely 6. Essential hypertension: Blood pressure within acceptable range 7. Coagulopathy, INR today 4.4. Coumadin on hold since last night Patient is refusing to go to [facility] for [facility]. I would like to see his INR below for prior to discharging him. I told him we would plan for discharge tomorrow. Avoid reversal with vitamin K as this will take a prolonged period of time for his INR to be therapeutic again.
--- NOTE | 2018-02-12 14:26 | P.PN ---
Subjective Progress Note Date: 02/12/18 Principal diagnosis: Acute community-acquired right lower lobe pneumonia This is an 88-year-old white male with history of multiple medical problems including type 2 diabetes, hypertension, hyperlipidemia, and remote history of esophageal cancer treated only with radiation and chemotherapy. This was about 12 years ago. Patient had a 2-pack-year history of smoking, presented to the ER with 1 week history of cough, mostly dry cough, at times productive with greenish phlegm. Patient was also complaining of some shortness of breath, however his shortness of breath is rather chronic. No known history of COPD, no previous history of pneumonia, patient had a recent full workup by his primary care physician at [facility], and according to his primary care physician all his workup was negative including multiple blood tests. Echocardiogram on admission showed no evidence of LV dysfunction, and no significant valvular heart disease. It did show moderate concentric left ventricular hypertrophy, ejection fraction was 55-60%. Chest x-ray on admission showed right lower lobe infiltrates. CBC showed evidence of leukocytosis with WBC count of 15.1. Troponin was borderline elevated at 0.041 , BNP level was just over 2000. Patient is known to have history of aortic valve replacement, chronically on anticoagulation therapy and his INR on admission was therapeutic. EKG was reviewed on admission, and it is suspicious for a second degree AV block. Cardiology consultation is pending. On 02/10/2018 patient seen in follow-up on selective care unit. In no acute distress, wearing oxygen intermittently right now room air pulse ox is 93%, no fever or chills, vital signs are stable, lung sounds are positive for some coarse rales over right lower lobe. Patient has been ambulating about the room , tolerating activity well, on empiric antibiotics in with Rocephin and Zithromax, is unable to produce a sputum sample for us, blood and urine cultures are pending. Clinically remains stable, improving On 02/11/2018 patient seen in follow-up. He denies any worsening dyspnea, still has some coughing, without much sputum production. Lung sounds are positive for some coarse rales at the right lower posterior lobe, and a chest x- ray has been reviewed by Dr. Hook, and shows some atelectasis at the right lower lobe, chronically elevated right hemidiaphragm, and better aeration of the left lower lobe. Clinically patient remains stable, no fever or chills, cultures remain negative, today's labs have been reviewed, INR is 4.8, Coumadin will be held tonight, continue with current medical management, patient could be considered for discharge either today or tomorrow. The patient is seen today 02/12/2018 in follow-up on the selective care unit. He is currently sitting up in a chair at the bedside. He is awake and alert in no acute distress. He denies any worsening shortness of breath, cough or congestion. He is maintaining good O2 saturations in the 90s on room air. He' s been afebrile. Hemodynamically stable. Blood and urine cultures reveal no growth. Count 10.5. Hemoglobin 12.7. Creatinine 0.92. INR 4.6. Objective - Vital Signs Vital signs: Vital Signs Temp 98.6 F 02/12/18 12:00 Pulse 72 02/12/18 12:12 Resp 20 02/12/18 12:00 BP 129/70 02/12/18 12:00 Pulse Ox 93 L 02/12/18 12:00 Intake & Output 02/11/18 02/12/18 02/12/18 18:59 06:59 18:59 Intake Total 480 180 120 Output Total 500 2 Balance -20 178 120 Weight 94.3 kg Intake: Oral 480 180 120 Output: Urine 500 2 Other: Voiding Method Toilet # Voids 2 3 2 - Exam GENERAL EXAM: Alert, active, comfortable in no apparent distress. On room air. HEAD: Normocephalic. EYES: Normal reaction of pupils, equal size. NOSE: Clear with pink turbinates. THROAT: No erythema or exudates. NECK: No masses, no JVD. CHEST: No chest wall deformity. LUNGS: Equal air entry with us in the posterior bases more so on the right. CVS: S1 and S2 normal with an audible systolic murmur, regular rhythm. ABDOMEN: No hepatosplenomegaly, normal bowel sounds, no guarding or rigidity. SPINE: No scoliosis or deformity SKIN: No rashes CENTRAL NERVOUS SYSTEM: No focal deficits, tone is normal in all 4 extremities. EXTREMITIES: Just of chronic venous stasis. There is no peripheral edema. No clubbing, no cyanosis. Peripheral pulses are intact. - Labs CBC & Chem 7: 02/12/18 05:36 02/12/18 05:36 Labs: Abnormal Lab Results - Last 24 Hours (Table) 02/11/18 02/11/18 02/12/18 Range/Units 16:38 20:05 05:36 Hgb 12.7 L (13.0-17.5) gm/dL Neutrophils # 8.5 H (1.3-7.7) k/uL PT (9.0-12.0) sec INR (<1.2) Carbon Dioxide (22-30) mmol/L BUN (9-20) mg/dL Glucose (74-99) mg/dL POC Glucose (mg/dL) 345 H 260 H (75-99) mg/dL 02/12/18 02/12/18 02/12/18 Range/Units 05:36 05:36 06:14 Hgb (13.0-17.5) gm/dL Neutrophils # (1.3-7.7) k/uL PT 44.7 H (9.0-12.0) sec INR 4.6 H (<1.2) Carbon Dioxide 32 H (22-30) mmol/L BUN 37 H (9-20) mg/dL Glucose 114 H (74-99) mg/dL POC Glucose (mg/dL) 105 H (75-99) mg/dL 02/12/18 Range/Units 11:45 Hgb (13.0-17.5) gm/dL Neutrophils # (1.3-7.7) k/uL PT (9.0-12.0) sec INR (<1.2) Carbon Dioxide (22-30) mmol/L BUN (9-20) mg/dL Glucose (74-99) mg/dL POC Glucose (mg/dL) 249 H (75-99) mg/dL Microbiology - Last 24 Hours (Table) 02/08/18 21:16 Blood Culture - Preliminary Blood No Growth after 72 hours Assessment and Plan Assessment: Assessment: 1 acute community-acquired right lower lobe pneumonia 2 multiple comorbidities including remote history of esophageal cancer, esophageal stricture, valvular heart disease and previous aortic valve replacement, hypothyroidism, type 2 diabetes, hypercholesterolemia, and cardiac arrhythmia. Plan: The patient was seen and evaluated by Dr. Urrutia. He is currently stable from the pulmonary standpoint. Anticoagulation per cardiology. We'll follow the patient on as-needed basis. I, the cosigning physician, performed a history & physical examination of the patient. Lungs sounds crackles in the posterior bases right greater than left. Maintaining good O2 saturations in the 90s on room air. I discussed the assessment and plan of care with my nurse practitioner, Hui Coffey. I attest to the above note as dictated by her.
[2018-02-12] MEDS ORDERED: PHYTONADIONE ORAL 5 MG/5 ML ORAL.SYRG PO STA (15:41)
[2018-02-12 17:11] LABS: Glucose,Whole Blood 284 mg/dL (75-99)
[2018-02-12 19:57] LABS: Glucose,Whole Blood 358 mg/dL (75-99)
[2018-02-12] MEDS: ATORVASTATIN 20 MG TAB PO SCH (20:29)
[2018-02-12] MEDS: FINASTERIDE 5 MG TAB PO SCH (20:29)
[2018-02-12] MEDS: LINAGLIPTIN 5 MG TABLET PO SCH (20:30)
[2018-02-12] MEDS: INSULIN DETEMIR 100 UNIT/ML 10 ML VIAL SQ SCH (20:34)
--- NOTE | 2018-02-12 22:35 | PN ---
PROGRESS NOTE Mr. Groves is doing better today. His hemoglobin is good, but his INR is 4.6. He is on Coumadin which has been held for 48 hours. I am recommending that he is probably a better candidate for Eliquis 2.5 mg b.i.d., therefore we will give vitamin K orally, bring his PT/INR in the normal range and treat him with Eliquis 2.5 mg b.i.d. He is in atrial fib, rate control is good. Denies chest pain. Stable overall. S1, S2 heard normally, regular rhythm noted. Lungs are clear. There is no JVD. Abdomen and lower extremity exam unchanged. Plan is to continue current medications. MMODL / IJN: [id number] /
[2018-02-13 06:00] LABS: Glucose,Whole Blood 59 mg/dL (75-99)
[2018-02-13] MEDS: INSULIN ASPART 100 UNIT/ML 1 ML 10 ML VIAL SQ SCH ×2 (06:01→12:48)
[2018-02-13] MEDS: LEVOTHYROXINE 88 MCG TAB PO SCH (06:08)
[2018-02-13 06:14] LABS: Glucose,Whole Blood 64 mg/dL (75-99)
[2018-02-13 06:27] LABS: Glucose,Whole Blood 78 mg/dL (75-99)
[2018-02-13 07:10] LABS: INR 1.4 (<1.2); Prothrombin Time 13.8 sec (9.0-12.0)
[2018-02-13] MEDS: IPRATROPIUM-ALBUTEROL 3 ML NEB INHALATION SCH ×2 (08:37→12:08)
[2018-02-13] MEDS: predniSONE 20 MG TAB PO SCH (08:39)
[2018-02-13] MEDS: ISOSORBIDE MONONITRATE ER 30 MG TAB.ER.24H PO SCH (08:39)
[2018-02-13] MEDS: PANTOPRAZOLE 40 MG TABLET PO SCH (08:39)
[2018-02-13] MEDS: AZITHROMYCIN 500 MG TAB PO SCH (08:39)
[2018-02-13] MEDS: TAMSULOSIN 0.4 MG CAP.ER.24H PO SCH (08:39)
[2018-02-13 08:53] VITALS: RESP 20
[2018-02-13 11:38] LABS: Glucose,Whole Blood 179 mg/dL (75-99)
--- NOTE | 2018-02-13 12:58 | P.PN ---
Subjective Progress Note Date: 02/13/18 Principal diagnosis: Acute community acquired right lower lobe pneumonia This is an 88-year-old white male with history of multiple medical problems including type 2 diabetes, hypertension, hyperlipidemia, and remote history of esophageal cancer treated only with radiation and chemotherapy. This was about 12 years ago. Patient had a 2-pack-year history of smoking, presented to the ER with 1 week history of cough, mostly dry cough, at times productive with greenish phlegm. Patient was also complaining of some shortness of breath, however his shortness of breath is rather chronic. No known history of COPD, no previous history of pneumonia, patient had a recent full workup by his primary care physician at [facility], and according to his primary care physician all his workup was negative including multiple blood tests. Echocardiogram on admission showed no evidence of LV dysfunction, and no significant valvular heart disease. It did show moderate concentric left ventricular hypertrophy, ejection fraction was 55-60%. Chest x-ray on admission showed right lower lobe infiltrates. CBC showed evidence of leukocytosis with WBC count of 15.1. Troponin was borderline elevated at 0.041 , BNP level was just over 2000. Patient is known to have history of aortic valve replacement, chronically on anticoagulation therapy and his INR on admission was therapeutic. EKG was reviewed on admission, and it is suspicious for a second degree AV block. Cardiology consultation is pending. On 02/10/2018 patient seen in follow-up on selective care unit. In no acute distress, wearing oxygen intermittently right now room air pulse ox is 93%, no fever or chills, vital signs are stable, lung sounds are positive for some coarse rales over right lower lobe. Patient has been ambulating about the room , tolerating activity well, on empiric antibiotics in with Rocephin and Zithromax, is unable to produce a sputum sample for us, blood and urine cultures are pending. Clinically remains stable, improving On 02/11/2018 patient seen in follow-up. He denies any worsening dyspnea, still has some coughing, without much sputum production. Lung sounds are positive for some coarse rales at the right lower posterior lobe, and a chest x- ray has been reviewed by Dr. Hook, and shows some atelectasis at the right lower lobe, chronically elevated right hemidiaphragm, and better aeration of the left lower lobe. Clinically patient remains stable, no fever or chills, cultures remain negative, today's labs have been reviewed, INR is 4.8, Coumadin will be held tonight, continue with current medical management, patient could be considered for discharge either today or tomorrow. On 02/13/2018 patient seen in follow-up on selective care unit. He is awake and alert, in no distress, sitting up in the recliner, room air pulse ox is 98% , patient is afebrile, vitals are stable. Denies any dyspnea, chest pain, denies any chest congestion. Tolerating ambulation. Cultures have been negative thus far. Lung sounds reveal coarse crackles at the right lower base posteriorly. No specific complaints, no acute events overnight, anticipate discharge home today on outpatient follow-up in the office. Objective - Vital Signs Vital signs: Vital Signs Temp 97.2 F L 02/13/18 08:30 Pulse 84 02/13/18 12:18 Resp 20 02/13/18 08:30 BP 129/77 02/13/18 08:30 Pulse Ox 98 02/13/18 08:30 Intake & Output 02/12/18 02/13/18 02/13/18 18:59 06:59 18:59 Intake Total 350 222 Balance 350 222 Weight 93.7 kg Intake: Oral 350 222 Other: Voiding Method Toilet # Voids 2 3 1 - Exam Physical Exam: Revealed an 88-year-old white male in no distress. Very pleasant. On 2 L nasal cannula. Head: Atraumatic, normocephalic. HEENT:[Neck is supple.] [No neck masses.] [No thyromegaly.] [No JVD.] PERRLA, EOMI, no icterus. Chest: [Significant crackles and rhonchi noted at the right base, minimal crackles at the left base, symmetrical expansion, no wheezing..] Cardiac Exam: [Normal S1 and S2, no S3 gallop, 2/6 systolic murmur thought the precordium. Abdomen: [Obese, Soft, nontender, no megaly, no rebound, no guarding, normal bowel sounds.] Extremities: [No clubbing, no edema, no cyanosis. Chronic venous stasis changes noted in lower extremities.] Neurological Exam: [No focal neurologic deficit.] Psychiatric: Normal mood, affect and mental status examination. Skin: No rashes. - Labs CBC & Chem 7: 02/12/18 05:36 02/12/18 05:36 Labs: Abnormal Lab Results - Last 24 Hours (Table) 02/12/18 02/12/18 02/13/18 Range/Units 17:00 19:56 05:58 PT (9.0-12.0) sec INR (<1.2) POC Glucose (mg/dL) 284 H 358 H 59 L (75-99) mg/dL 02/13/18 02/13/18 02/13/18 Range/Units 06:13 06:19 11:32 PT 13.8 H (9.0-12.0) sec INR 1.4 H (<1.2) POC Glucose (mg/dL) 64 L 179 H (75-99) mg/dL Microbiology - Last 24 Hours (Table) 02/08/18 21:16 Blood Culture - Preliminary Blood No Growth after 96 hours Assessment and Plan Plan: Assessment: 1 acute community-acquired right lower lobe pneumonia 2 multiple comorbidities including remote history of esophageal cancer, esophageal stricture, valvular heart disease and previous aortic valve replacement, hypothyroidism, type 2 diabetes, hypercholesterolemia, and cardiac arrhythmia. Plan: Patient remains stable, improving. No fever or chills, no altered mentation, no dyspnea, he is on room air. He's been discharge home today, see him in the office in one week with Dr. Hook. I performed a history & physical examination of the patient and discussed their management with my nurse practitioner, Khadijah Cuevas. I reviewed the nurse practitioner's note and agree with the documented findings and plan of care. Lung sounds are positive for right lower lobe crackles. The findings and the impression was discussed with the patient. I attest to the documentation by the nurse practitioner. Time with Patient: Less than 30
--- NOTE | 2018-02-13 13:06 | P.DS ---
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 Patient was evaluated and admitted to the hospital for the below mentioned medical problems. His overall condition improved throughout his hospital stay. He would be discharged home in a stable condition. Patient refused to go to [facility] for rehab. 1. Community-acquired pneumonia with sepsis on presentation. No septic shock. Finished 5 days course of antibiotic in the hospital. Blood culture negative to date. 2. History of aortic valve replacement on anticoagulation with Coumadin. This was discontinued and switched to Eliquis per cardiology recommendations 3. Coronary artery disease with prior stent placement, with mild troponin elevation on presentation. Seen and evaluated by cardiology. Continue medical management. 4. First-degree heart block noted on 12-lead EKG: seen by cardiology. No intervention needed at this time. 5. Type 2 diabetes mellitus, not well controlled. A1c 9.1. Continue current regimen. Monitor blood glucose closely 6. Essential hypertension: Blood pressure within acceptable range 7. Coagulopathy, INR was reversed with oral vitamin K. Anticoagulation changed from Coumadin to Eliquis For further details about this hospitalization please refer to the electronic chart Patient Condition at Discharge: Fair Plan - Discharge Summary Discharge Rx Participant: No New Discharge Prescriptions: New Apixaban [Eliquis] 2.5 mg PO BID #60 tablet Continue Madill-3 Fatty Acids [Madill-3] 1,000 mg PO DAILY Cyanocobalamin [Vitamin B-12] 1,000 mcg PO DAILY Nitroglycerin Sl Tabs [Nitrostat] 0.4 mg SUBLINGUAL Q5M PRN PRN Reason: Chest Pain Multivitamins, Thera [Multivitamin (formulary)] 1 tab PO DAILY Omeprazole [PriLOSEC] 20 mg PO BID Levothyroxine Sodium [Synthroid] 88 mcg PO DAILY Insulin Glargine,Hum.rec.anlog [Lantus Solostar] 25 unit SQ HS Rosuvastatin Calcium [Crestor] 10 mg PO HS Isosorbide Mononitrate ER [Imdur] 30 mg PO DAILY Dutasteride [Avodart] 0.5 mg PO HS Aspirin [Adult Low Dose Aspirin EC] 81 mg PO DAILY Losartan Potassium 100 mg PO DAILY sitaGLIPtin [Januvia] 100 mg PO HS Metoprolol Tartrate [Lopressor] 12.5 mg PO BID #60 tab Furosemide [Lasix] 20 mg PO BID Potassium Chloride [Klor-Con 10] 10 meq PO DAILY Glucosam/Des-Msm1/C/Ortiz/Bosw [Glucosamine-Chondroitin Tablet] 1 tab PO DAILY Tamsulosin HCl [Flomax] 0.4 mg PO DAILY Calcium Carbonate [Calcium] 600 mg PO DAILY INSULIN LISPRO (HumaLOG) [humaLOG] See Protocol SQ TID Discontinued Warfarin [Coumadin] 2.5 mg PO SUTUTHSA Warfarin [Coumadin] 3.75 mg PO MOWEFR Discharge Medication List Aspirin [Adult Low Dose Aspirin EC] 81 mg PO DAILY 06/09/15 [History] Cyanocobalamin [Vitamin B-12] 1,000 mcg PO DAILY 06/09/15 [History] Dutasteride [Avodart] 0.5 mg PO HS 06/09/15 [History] Insulin Glargine,Hum.rec.anlog [Lantus Solostar] 25 unit SQ HS 06/09/15 [History ] Isosorbide Mononitrate ER [Imdur] 30 mg PO DAILY 06/09/15 [History] Levothyroxine Sodium [Synthroid] 88 mcg PO DAILY 06/09/15 [History] Multivitamins, Thera [Multivitamin (formulary)] 1 tab PO DAILY 06/09/15 [History ] Nitroglycerin Sl Tabs [Nitrostat] 0.4 mg SUBLINGUAL Q5M PRN 06/09/15 [History] Madill-3 Fatty Acids [Madill-3] 1,000 mg PO DAILY 06/09/15 [History] Omeprazole [PriLOSEC] 20 mg PO BID 06/09/15 [History] Rosuvastatin Calcium [Crestor] 10 mg PO HS 06/09/15 [History] Losartan Potassium 100 mg PO DAILY 06/10/15 [History] sitaGLIPtin [Januvia] 100 mg PO HS 06/10/15 [History] Metoprolol Tartrate [Lopressor] 12.5 mg PO BID #60 tab 06/14/15 [Rx] Furosemide [Lasix] 20 mg PO BID 08/20/16 [History] Glucosam/Des-Msm1/C/Ortiz/Bosw [Glucosamine-Chondroitin Tablet] 1 tab PO DAILY 08/20/16 [History] Potassium Chloride [Klor-Con 10] 10 meq PO DAILY 08/20/16 [History] Tamsulosin HCl [Flomax] 0.4 mg PO DAILY 08/20/16 [History] Calcium Carbonate [Calcium] 600 mg PO DAILY 02/08/18 [History] INSULIN LISPRO (HumaLOG) [humaLOG] See Protocol SQ TID 02/08/18 [History] Apixaban [Eliquis] 2.5 mg PO BID #60 tablet 02/13/18 [Rx] Follow up Appointment(s)/Referral(s): Lisa Urrutia MD [STAFF PHYSICIAN] - 1 Week Alexander Santos MD [Primary Care Provider] - 1-2 days [facility], [NON-STAFF] - 1 Week Marcellus Kat MD [STAFF PHYSICIAN] - 2 Weeks Care Plan Goals (MU): Follow up with [facility] one week. 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 Discharge Disposition: HOME SELF-CARE
[2018-02-13 13:42] VITALS: BP 161/83; PULSE 93; TEMP 98.4
--- NOTE | 2018-02-13 14:29 | PN ---
PROGRESS NOTE Mr. Groves is in atrial fib rate is controlled. INR is 1.4. I am recommending that he can be discharged on Eliquis 2.5 mg b.i.d., and 1st dose later this evening. Vital signs stable. S1-S2 heard normally. Irregular rhythm noted. Short systolic murmur noted. Lungs reveal improved air entry. Abdomen and lower extremity looks exam unchanged. Patient wishes to followup with a kiln furniture saw tender of his choice somewhere in the [facility] area. We will therefore not follow up in the office. I explained to him to let his kiln furniture saw tender know that he is on Eliquis 2.5 mg b.i.d. and not on Coumadin. MMODL / IJN: [id number] /
[2018-02-13] MEDS ORDERED: APIXABAN 2.5 MG TABLET PO SCH (16:01)
== END 2018-02-13 14:33 | disposition home or self-care (01) | DRG 871 ==
LOC: EC 20:40 → 3SCARD 22:44
PROVIDERS: ADMIT Internal Medicine; ATTEND Internal Medicine
DX: A41.9 Sepsis, unspecified organism (principal); J18.9 Pneumonia, unspecified organism; I21.A1 Myocardial infarction type 2; J44.1 Chronic obstructive pulmonary disease with (acute) exacerbation; I44.2 Atrioventricular block, complete; J44.0 Chronic obstructive pulmonary disease with (acute) lower respiratory infection; E03.9 Hypothyroidism, unspecified; E11.65 Type 2 diabetes mellitus with hyperglycemia; I25.10 Atherosclerotic heart disease of native coronary artery without angina pectoris; I48.0 Paroxysmal atrial fibrillation; R79.1 Abnormal coagulation profile; E78.5 Hyperlipidemia, unspecified; E87.5 Hyperkalemia; I10 Essential (primary) hypertension; E78.00 Pure hypercholesterolemia, unspecified; K21.9 Gastro-esophageal reflux disease without esophagitis; N40.0 Benign prostatic hyperplasia without lower urinary tract symptoms; E80.7 Disorder of bilirubin metabolism, unspecified; E11.40 Type 2 diabetes mellitus with diabetic neuropathy, unspecified; Z77.090 Contact with and (suspected) exposure to asbestos; Z95.5 Presence of coronary angioplasty implant and graft; Z79.01 Long term (current) use of anticoagulants; Z90.49 Acquired absence of other specified parts of digestive tract; Z86.010 Personal history of colon polyps; Z87.891 Personal history of nicotine dependence; Z79.82 Long term (current) use of aspirin; Z79.899 Other long term (current) drug therapy; Z85.01 Personal history of malignant neoplasm of esophagus; Z92.3 Personal history of irradiation; Z92.21 Personal history of antineoplastic chemotherapy; Z79.4 Long term (current) use of insulin; Z79.890 Hormone replacement therapy; Z83.3 Family history of diabetes mellitus; Z95.1 Presence of aortocoronary bypass graft; Z95.3 Presence of xenogenic heart valve
CPT/HCPCS: 36415; 71046; 80048; 80053; 81001; 82550; 82553; 83036; 83735; 83880; 84443; 84484; 85025; 85610; 85730; 87040; 87086; 87449; 93306; 94640; 94644; 94760; 96361; 96365; 96367; 96375; 96376; 99291

== ENCOUNTER → 2018-07-08 | Outpatient (CLI) | payer MEDICARE | END | disposition home or self-care (01) | LOC: RADECHMAIN 12:19 | PROVIDERS: ATTEND Family Medicine | DX: I48.91 Unspecified atrial fibrillation (principal); I49.3 Ventricular premature depolarization; R00.8 Other abnormalities of heart beat | CPT/HCPCS: 93225; 93226 ==

== ENCOUNTER 2018-11-24 19:09 | Emergency (ER) | payer MEDICARE ==
[2018-11-24 19:16] VITALS: BP 143/81; PULSE 77; RESP 18; TEMP 97.5
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
--- NOTE | 2018-11-24 20:18 | CT ---
EXAMINATION TYPE: CT brain miguel lawler DATE OF EXAM: 11/24/2018 COMPARISON: None HISTORY: Syncope and fall. Neck pain. Headache. CT DLP: 1433.4 mGycm Automated exposure control for dose reduction was used. TECHNIQUE: CT scan of the head and cervical spine are performed without contrast. FINDINGS: There is cerebral cortical atrophy. There is no mass effect nor midline shift. There is n o sign of intracranial hemorrhage. The calvarium is intact. There is mild straightening of the cervical spine. There is some degenerative disc space narrowing fr om C3 to C7. Posterior elements are intact. The skull base is intact. There is no evidence of a fract ure. I see no bony destructive process. There is mild cervical facet arthropathy. IMPRESSION: Cerebral atrophy. No acute intracranial abnormality. Mild multilevel spondylotic changes in the cervical spine. No fracture.
== END 2018-11-24 20:51 | disposition home or self-care (01) ==
LOC: EC 19:09
DX: S09.90XA Unspecified injury of head, initial encounter (principal); I11.0 Hypertensive heart disease with heart failure; I50.9 Heart failure, unspecified; K21.9 Gastro-esophageal reflux disease without esophagitis; E78.5 Hyperlipidemia, unspecified; E11.40 Type 2 diabetes mellitus with diabetic neuropathy, unspecified; E03.9 Hypothyroidism, unspecified; Z79.82 Long term (current) use of aspirin; Z79.4 Long term (current) use of insulin; Z79.890 Hormone replacement therapy; Z79.899 Other long term (current) drug therapy; Z95.1 Presence of aortocoronary bypass graft; Z95.5 Presence of coronary angioplasty implant and graft; Z95.4 Presence of other heart-valve replacement; Z87.891 Personal history of nicotine dependence; W01.198A Fall on same level from slipping, tripping and stumbling with subsequent striking against other object, initial encounter; Y93.01 Activity, walking, marching and hiking; Y92.003 Bedroom of unspecified non-institutional (private) residence as the place of occurrence of the external cause
CPT/HCPCS: 70450; 72125; 99283

== ENCOUNTER 2018-12-03 13:08 | Emergency (ER) | payer MEDICARE ==
[2018-12-03 13:13] VITALS: TEMP 97.6
[2018-12-03 13:17] LABS: Glucose,Whole Blood 83 mg/dL (75-99)
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
[2018-12-03 13:36] LABS: Basophils # (A) 0.1 k/uL (0-0.2); Basophils % (A) 1 %; Eosinophils # (A) 0.2 k/uL (0-0.7); Eosinophils % (A) 2 %; HCT 44.7 % (39.0-53.0); HGB 13.8 gm/dL (13.0-17.5); Lymphocytes # (A) 1.7 k/uL (1.0-4.8); Lymphocytes % (A) 23 %; MCH 29.1 pg (25.0-35.0); MCHC 30.9 g/dL (31.0-37.0); MCV 94.3 fL (80.0-100.0); Mean Platelet Volume 6.7; Monocytes # (A) 0.6 k/uL (0-1.0); Monocytes % (A) 8 %; Neutrophils # (A) 4.5 k/uL (1.3-7.7); Neutrophils % (A) 63 %; Platelet Count 181 k/uL (150-450); RBC 4.74 m/uL (4.30-5.90); RDW 14.3 % (11.5-15.5); WBC 7.2 k/uL (3.8-10.6)
[2018-12-03 13:49] LABS: Calcium 9.2 mg/dL (8.4-10.2); Magnesium 1.8 mg/dL (1.6-2.3); Potassium 3.9 mmol/L (3.5-5.1); Total Bilirubin 0.5 mg/dL (0.2-1.3); Total Protein 7.1 g/dL (6.3-8.2)
[2018-12-03 14:23] LABS: Appearance,Urine Clear (Clear); Bilirubin,Urine Negative (Negative); Blood,Urine Negative (Negative); Color,Urine Yellow; Glucose,Urine (UA) Negative (Negative); Ketones,Urine Negative (Negative); Leukocyte Esterase,Urine Negative (Negative); Nitrite,Urine Negative (Negative); Protein,Urine Negative (Negative); Specific Gravity,Urine 1.011 (1.001-1.035); Urobilinogen,Urine <2.0 mg/dL (<2.0)
--- NOTE | 2018-12-03 14:31 | XR ---
EXAMINATION TYPE: XR chest 2V DATE OF EXAM: 12/03/2018 HISTORY: Difficulty breathing . REFERENCE: Previous study dated 02/11/2018. FINDINGS: There has been a midline sternotomy. The heart is enlarged. There is platelike atelectasis at the right lung base. Left lung appears clear. Pleural spaces are clear. IMPRESSION: 1. CARDIOMEGALY. 2. PLATELIKE ATELECTASIS, RIGHT LUNG BASE.
[2018-12-03 15:15] LABS: Glucose,Whole Blood 97 mg/dL (75-99)
[2018-12-03 15:16] VITALS: BP 101/48; PULSE 71; RESP 18
== END 2018-12-03 15:38 | disposition home or self-care (01) ==
LOC: EC 13:08
DX: E11.649 Type 2 diabetes mellitus with hypoglycemia without coma (principal); I48.92 Unspecified atrial flutter; E11.40 Type 2 diabetes mellitus with diabetic neuropathy, unspecified; N40.0 Benign prostatic hyperplasia without lower urinary tract symptoms; I11.0 Hypertensive heart disease with heart failure; I50.9 Heart failure, unspecified; E03.9 Hypothyroidism, unspecified; E78.5 Hyperlipidemia, unspecified; K21.9 Gastro-esophageal reflux disease without esophagitis; J44.9 Chronic obstructive pulmonary disease, unspecified; Z79.4 Long term (current) use of insulin; Z79.82 Long term (current) use of aspirin; Z79.890 Hormone replacement therapy; Z79.1 Long term (current) use of non-steroidal anti-inflammatories (NSAID); Z79.51 Long term (current) use of inhaled steroids; Z79.899 Other long term (current) drug therapy; Z87.19 Personal history of other diseases of the digestive system; Z92.3 Personal history of irradiation; Z92.21 Personal history of antineoplastic chemotherapy; Z90.49 Acquired absence of other specified parts of digestive tract; Z87.891 Personal history of nicotine dependence; Z95.1 Presence of aortocoronary bypass graft; Z95.2 Presence of prosthetic heart valve; Z85.01 Personal history of malignant neoplasm of esophagus; Z83.3 Family history of diabetes mellitus
CPT/HCPCS: 36415; 71046; 80053; 81003; 83735; 85025; 93005; 99285

== ENCOUNTER 2019-04-29 23:12 | Emergency (ER) | payer MEDICARE ==
[2019-04-29] MEDS ORDERED: SODIUM CHLORIDE 0.9% 500 ML 500 ML IV SCH (23:30)
[2019-04-29 23:48] LABS: Basophils % (A) 0 %; Eosinophils # (A) 0.1 k/uL (0-0.7); Eosinophils % (A) 1 %; HGB 13.5 gm/dL (13.0-17.5); Lymphocytes # (A) 1.1 k/uL (1.0-4.8); Lymphocytes % (A) 10 %; MCH 29.2 pg (25.0-35.0); MCHC 32.1 g/dL (31.0-37.0); MCV 90.9 fL (80.0-100.0); Mean Platelet Volume 7.7; Monocytes # (A) 0.6 k/uL (0-1.0); Monocytes % (A) 5 %; Neutrophils # (A) 9.2 k/uL (1.3-7.7); Neutrophils % (A) 83 %; Platelet Count 172 k/uL (150-450); RBC 4.62 m/uL (4.30-5.90); RDW 13.3 % (11.5-15.5); WBC 11.1 k/uL (3.8-10.6)
[2019-04-30 00:04] LABS: Partial Thromboplastin Time 20.4 sec (22.0-30.0); Prothrombin Time 10.1 sec (9.0-12.0)
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
[2019-04-30 00:09] VITALS: RESP 18
[2019-04-30 00:11] LABS: ALT 16 U/L (4-49); AST 23 U/L (17-59); African American GFR (CKD) >90 (>60 ml/min/1.73 sqM); Albumin 3.9 g/dL (3.5-5.0); Alkaline Phosphatase 122 U/L (38-126); Anion Gap 8 mmol/L; Blood Urea Nitrogen 20 mg/dL (9-20); Carbon Dioxide 30 mmol/L (22-30); Chloride 94 mmol/L (98-107); Glucose 309 mg/dL (74-99); Non-African American GFR(CKD) 79 (>60 ml/min/1.73 sqM); Potassium 4.1 mmol/L (3.5-5.1); Sodium 132 mmol/L (137-145); Total Bilirubin 0.6 mg/dL (0.2-1.3); Total Protein 6.9 g/dL (6.3-8.2)
--- NOTE | 2019-04-30 00:32 | XR ---
EXAMINATION TYPE: XR chest 2V DATE OF EXAM: 04/30/2019 COMPARISON: 12/03/2018 HISTORY: Difficulty breathing. Cough. TECHNIQUE: FINDINGS: There is no heart failure nor confluent pneumonic infiltrate. There is mild elevation of th e right diaphragm. There are sternal wires. There is no pleural effusion. IMPRESSION: Chronic elevation of the right diaphragm unchanged. No heart failure seen.
[2019-04-30 01:26] LABS: Appearance,Urine Clear (Clear); Bilirubin,Urine Negative (Negative); Blood,Urine Negative (Negative); Color,Urine Yellow; Glucose,Urine (UA) 4+ (Negative); Ketones,Urine Negative (Negative); Leukocyte Esterase,Urine Negative (Negative); Nitrite,Urine Negative (Negative); PH, Urine 6.5 (5.0-8.0); Protein,Urine Trace (Negative); Specific Gravity,Urine 1.019 (1.001-1.035)
[2019-04-30 01:55] VITALS: BP 150/90; PULSE 83; TEMP 98
== END 2019-04-30 02:10 | disposition home or self-care (01) ==
LOC: EC 23:12
DX: J06.9 Acute upper respiratory infection, unspecified (principal); I11.0 Hypertensive heart disease with heart failure; I50.9 Heart failure, unspecified; K21.9 Gastro-esophageal reflux disease without esophagitis; E11.40 Type 2 diabetes mellitus with diabetic neuropathy, unspecified; N40.0 Benign prostatic hyperplasia without lower urinary tract symptoms; E03.9 Hypothyroidism, unspecified; Z85.01 Personal history of malignant neoplasm of esophagus; Z92.21 Personal history of antineoplastic chemotherapy; Z95.2 Presence of prosthetic heart valve; Z95.1 Presence of aortocoronary bypass graft; Z95.5 Presence of coronary angioplasty implant and graft; Z87.891 Personal history of nicotine dependence; Z79.4 Long term (current) use of insulin; Z79.890 Hormone replacement therapy; Z79.82 Long term (current) use of aspirin; Z79.899 Other long term (current) drug therapy
CPT/HCPCS: 36415; 71046; 80053; 81003; 83605; 84484; 85025; 85610; 85730; 87040; 87502; 93005; 96360; 96361; 99285

== ENCOUNTER 2019-05-03 12:20 | Emergency (ER) | payer MEDICARE ==
[2019-05-03 12:33] VITALS: TEMP 97.9
--- NOTE | 2019-05-03 13:30 | XR ---
EXAMINATION TYPE: XR chest 1V portable DATE OF EXAM: 05/03/2019 COMPARISON: 04/30/2019 HISTORY: Altered mental status TECHNIQUE: Single frontal view of the chest is obtained. FINDINGS: Postsurgical changes with arthropathy of the shoulders and cardiomegaly. Elevated right he midiaphragm with basilar infiltrate. No overt failure or pneumothorax. IMPRESSION: 1. Elevated right hemidiaphragm with basilar infiltrate or atelectasis stable from prior exam
[2019-05-03 13:35] LABS: Albumin 3.8 g/dL (3.5-5.0); Calcium 9.2 mg/dL (8.4-10.2); Magnesium 1.8 mg/dL (1.6-2.3); Potassium 4.2 mmol/L (3.5-5.1); Total Bilirubin 0.8 mg/dL (0.2-1.3); Total Protein 6.9 g/dL (6.3-8.2)
[2019-05-03 13:40] LABS: Amphetamine Screen,Urine Not Detected (NotDetected); Barbiturate Screen,Urine Not Detected (NotDetected); Benzodiazepines Screen,Urine Not Detected (NotDetected); Cocaine Screen,Urine Not Detected (NotDetected); Methadone Screen, Urine Not Detected (NotDetected); Opiate Screen,Urine Not Detected (NotDetected); Oxycodone Screen, Urine Not Detected (NotDetected); Phencyclidine Screen,Urine Not Detected (NotDetected); Tricyclic Antidepressant,Urine Not Detected (NotDetected); Urn Cannabinoid Scrn Not Detected (NotDetected)
[2019-05-03 13:55] LABS: Basophils % (A) 0 %; Eosinophils # (A) 0.1 k/uL (0-0.7); Eosinophils % (A) 2 %; HCT 41.7 % (39.0-53.0); HGB 13.4 gm/dL (13.0-17.5); Lymphocytes # (A) 1.3 k/uL (1.0-4.8); Lymphocytes % (A) 15 %; MCHC 32.2 g/dL (31.0-37.0); MCV 90.1 fL (80.0-100.0); Mean Platelet Volume 7.6; Monocytes # (A) 0.6 k/uL (0-1.0); Monocytes % (A) 7 %; Neutrophils # (A) 6.6 k/uL (1.3-7.7); Neutrophils % (A) 75 %; Platelet Count 222 k/uL (150-450); RBC 4.62 m/uL (4.30-5.90); WBC 8.8 k/uL (3.8-10.6)
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
--- NOTE | 2019-05-03 15:41 | CT ---
EXAMINATION TYPE: CT brain cspine wo con DATE OF EXAM: 05/03/2019 COMPARISON: Prior trauma CT November 24, 2018 HISTORY: Fall with complaints of neck pain and head pain CT DLP: 1396.5 mGycm. Automated Exposure Control for Dose Reduction was Utilized. TECHNIQUE: CT scan of the head and cervical spine are performed without contrast. FINDINGS: There is no acute intracranial hemorrhage or midline shift identified. Diffuse ventricula r and sulcal prominence. Low-attenuation in the deep and periventricular white matter redemonstrated. For early moderate mucosal thickening inferior aspect left maxillary sinus on current study. Remaind er paranasal sinuses are clear. Visualized globes are intact bilaterally. The calvarium is intact. Cervical spine is visualized in its entirety from C1 through upper thoracic levels and redemonstrates straightened alignment without evidence of acute fracture or dislocation. Prevertebral soft tissue remains within normal limits. The C1-C2 articulation redemonstrates asymmetric left-sided narrowing on coronal images. Vertebral body heights are maintained. There is moderate to severe multilevel dis c space narrowing most prominent C6-C7 level with [id number] multilevel anterior spurring. Spin al canal grossly preserved. Slight grade 1 retrolisthesis C4 on C5 redemonstrated. Axial images show multilevel uncovertebral facet degenerative changes contributing to multilevel neur al foraminal narrowing greatest at C5-C6 level. Thyroid gland is somewhat small in size. Visualized l ping apices show no pneumothorax. Probably moderate to severe calcified plaque at carotid bulb level g reater on the left than the right should be correlated with nonemergent carotid ultrasound. IMPRESSION: 1. There is no acute fracture or dislocation evident in the cervical spine. 2. No acute intracranial hemorrhage or midline shift is seen. Fairly moderate diffuse cerebral atroph y and chronic small vessel ischemic change redemonstrated without significant interval change.
[2019-05-03] MEDS ORDERED: LORazepam 1 MG TAB PO STA (19:17)
[2019-05-03] MEDS ORDERED: LORazepam 2 MG/ML INJ IM STA (19:17)
[2019-05-03] MEDS ORDERED: HALOPERIDOL LACTATE 5 MG/ML 1 ML VIAL IM STA (20:33)
[2019-05-03 22:44] LABS: Glucose,Whole Blood 250 mg/dL (75-99)
[2019-05-04 06:54] VITALS: RESP 18
[2019-05-04] MEDS ORDERED: [UNRECOGNIZED DRUG - OTHER] PO PRN (11:48)
[2019-05-04] MEDS ORDERED: CLOTRIMAZOLE 1% CREAM 15 GM TUBE TOPICAL PRN (11:48)
[2019-05-04] MEDS ORDERED: clonazePAM 0.5 MG TAB PO PRN (11:48)
[2019-05-04] MEDS ORDERED: busPIRone HCl 5 MG TAB PO SCH (12:30)
[2019-05-04] MEDS ORDERED: LOSARTAN 25 MG TAB PO SCH (12:30)
[2019-05-04] MEDS ORDERED: LEVOFLOXACIN 750 MG TAB PO SCH (12:30)
[2019-05-04] MEDS ORDERED: guaiFENesin 600 MG TABLET.ER PO SCH (12:30)
[2019-05-04] MEDS ORDERED: LEVOTHYROXINE 88 MCG TAB PO SCH (12:30)
[2019-05-04] MEDS ORDERED: ESCITALOPRAM 20 MG TAB PO SCH (12:30)
[2019-05-04] MEDS ORDERED: Brexpiprazole [Rexulti] PO SCH (12:30)
[2019-05-04] MEDS ORDERED: FUROSEMIDE 20 MG TAB PO SCH (12:30)
[2019-05-04] MEDS ORDERED: PANTOPRAZOLE 40 MG TABLET PO SCH (12:30)
[2019-05-04] MEDS ORDERED: TAMSULOSIN 0.4 MG CAP.ER.24H PO SCH (12:30)
[2019-05-04] MEDS ORDERED: IPRATROPIUM-ALBUTEROL 3 ML NEB INHALATION SCH (14:00)
--- NOTE | 2019-05-04 14:13 | ED ---
Medical Decision Making - Medical Decision Making Patient rested comfortably throughout the morning he was pending transfer. He will be transferred for inpatient treatment of acute psychosis. - Lab Data Result diagrams: 05/03/19 13:05 05/03/19 13:05 Lab Results 05/03/19 05/03/19 05/03/19 Range/Units 13:05 13:05 13:15 WBC 8.8 (3.8-10.6) k/uL RBC 4.62 (4.30-5.90) m/uL Hgb 13.4 (13.0-17.5) gm/dL Hct 41.7 (39.0-53.0) % MCV 90.1 (80.0-100.0) fL MCH 29.0 (25.0-35.0) pg MCHC 32.2 (31.0-37.0) g/dL RDW 13.0 (11.5-15.5) % Plt Count 222 (150-450) k/uL Neutrophils % 75 % Lymphocytes % 15 % Monocytes % 7 % Eosinophils % 2 % Basophils % 0 % Neutrophils # 6.6 (1.3-7.7) k/uL Lymphocytes # 1.3 (1.0-4.8) k/uL Monocytes # 0.6 (0-1.0) k/uL Eosinophils # 0.1 (0-0.7) k/uL Basophils # 0.0 (0-0.2) k/uL Sodium 133 L (137-145) mmol/L Potassium 4.2 (3.5-5.1) mmol/L Chloride 96 L (98-107) mmol/L Carbon Dioxide 28 (22-30) mmol/L Anion Gap 9 mmol/L BUN 19 (9-20) mg/dL Creatinine 0.90 (0.66-1.25) mg/dL Est GFR (CKD-EPI)AfAm 88 (>60 ml/min/1.73 sqM) Est GFR (CKD-EPI)NonAf 76 (>60 ml/min/1.73 sqM) Glucose 156 H (74-99) mg/dL POC Glucose (mg/dL) (75-99) mg/dL POC Glu Boat Tester ID Calcium 9.2 (8.4-10.2) mg/dL Magnesium 1.8 (1.6-2.3) mg/dL Total Bilirubin 0.8 (0.2-1.3) mg/dL AST 25 (17-59) U/L ALT 17 (4-49) U/L Alkaline Phosphatase 88 (38-126) U/L Total Protein 6.9 (6.3-8.2) g/dL Albumin 3.8 (3.5-5.0) g/dL Lipase 15 L (23-300) U/L TSH 3.210 (0.465-4.680) mIU/L Urine Opiates Screen Not Detected (NotDetected) Ur Oxycodone Screen Not Detected (NotDetected) Urine Methadone Screen Not Detected (NotDetected) Ur Propoxyphene Screen Not Detected (NotDetected) Ur Barbiturates Screen Not Detected (NotDetected) U Tricyclic Antidepress Not Detected (NotDetected) Ur Phencyclidine Scrn Not Detected (NotDetected) Ur Amphetamines Screen Not Detected (NotDetected) U Methamphetamines Scrn Not Detected (NotDetected) U Benzodiazepines Scrn Not Detected (NotDetected) Urine Cocaine Screen Not Detected (NotDetected) U Marijuana (THC) Screen Not Detected (NotDetected) 05/03/19 Range/Units 22:41 WBC (3.8-10.6) k/uL RBC (4.30-5.90) m/uL Hgb (13.0-17.5) gm/dL Hct (39.0-53.0) % MCV (80.0-100.0) fL MCH (25.0-35.0) pg MCHC (31.0-37.0) g/dL RDW (11.5-15.5) % Plt Count (150-450) k/uL Neutrophils % % Lymphocytes % % Monocytes % % Eosinophils % % Basophils % % Neutrophils # (1.3-7.7) k/uL Lymphocytes # (1.0-4.8) k/uL Monocytes # (0-1.0) k/uL Eosinophils # (0-0.7) k/uL Basophils # (0-0.2) k/uL Sodium (137-145) mmol/L Potassium (3.5-5.1) mmol/L Chloride (98-107) mmol/L Carbon Dioxide (22-30) mmol/L Anion Gap mmol/L BUN (9-20) mg/dL Creatinine (0.66-1.25) mg/dL Est GFR (CKD-EPI)AfAm (>60 ml/min/1.73 sqM) Est GFR (CKD-EPI)NonAf (>60 ml/min/1.73 sqM) Glucose (74-99) mg/dL POC Glucose (mg/dL) 250 H (75-99) mg/dL POC Glu Boat Tester ID Yelena Zhu Calcium (8.4-10.2) mg/dL Magnesium (1.6-2.3) mg/dL Total Bilirubin (0.2-1.3) mg/dL AST (17-59) U/L ALT (4-49) U/L Alkaline Phosphatase (38-126) U/L Total Protein (6.3-8.2) g/dL Albumin (3.5-5.0) g/dL Lipase (23-300) U/L TSH (0.465-4.680) mIU/L Urine Opiates Screen (NotDetected) Ur Oxycodone Screen (NotDetected) Urine Methadone Screen (NotDetected) Ur Propoxyphene Screen (NotDetected) Ur Barbiturates Screen (NotDetected) U Tricyclic Antidepress (NotDetected) Ur Phencyclidine Scrn (NotDetected) Ur Amphetamines Screen (NotDetected) U Methamphetamines Scrn (NotDetected) U Benzodiazepines Scrn (NotDetected) Urine Cocaine Screen (NotDetected) U Marijuana (THC) Screen (NotDetected) Disposition Clinical Impression: Psychosis Disposition: TRANSFER TO PSYCH HOSP/UNIT Condition: Fair Referrals: Vivek Still MD [Primary Care Provider] - 1-2 days
[2019-05-04 15:03] VITALS: BP 149/77; PULSE 82
[2019-05-04] MEDS ORDERED: ISOSORBIDE MONONITRATE ER 30 MG TAB.ER.24H PO SCH (16:00)
[2019-05-04] MEDS ORDERED: FINASTERIDE 5 MG TAB PO SCH (20:00)
[2019-05-04] MEDS ORDERED: INSULIN DETEMIR (LEVEMIR) 100 UNIT/ML SYR SQ SCH (20:00)
[2019-05-04] MEDS ORDERED: ASPIRIN 81 MG PO SCH (20:00)
[2019-05-04] MEDS ORDERED: LINAGLIPTIN 5 MG TABLET PO SCH (20:00)
== END 2019-05-04 15:15 ==
LOC: EC 12:20
DX: F29 Unspecified psychosis not due to a substance or known physiological condition (principal); S00.81XA Abrasion of other part of head, initial encounter; M54.2 Cervicalgia; I11.0 Hypertensive heart disease with heart failure; I50.9 Heart failure, unspecified; E11.42 Type 2 diabetes mellitus with diabetic polyneuropathy; K21.9 Gastro-esophageal reflux disease without esophagitis; E03.9 Hypothyroidism, unspecified; N40.0 Benign prostatic hyperplasia without lower urinary tract symptoms; B37.2 Candidiasis of skin and nail; Z87.891 Personal history of nicotine dependence; Z79.4 Long term (current) use of insulin; Z79.52 Long term (current) use of systemic steroids; Z79.82 Long term (current) use of aspirin; Z79.890 Hormone replacement therapy; Z79.899 Other long term (current) drug therapy; Z85.01 Personal history of malignant neoplasm of esophagus; Z92.21 Personal history of antineoplastic chemotherapy; Z92.3 Personal history of irradiation; Z87.440 Personal history of urinary (tract) infections; Z95.1 Presence of aortocoronary bypass graft; Z95.2 Presence of prosthetic heart valve; W19.XXXA Unspecified fall, initial encounter
CPT/HCPCS: 82075; 36415; 80053; 84443; 83690; 83735; 85025; 80306; 71045; 72125; 70450; 99285; 96372 ×2; J2060; J1630